=== PATIENT | male | born 1950 | race Caucasian/White ===

== ENCOUNTER 2025-01-04 09:48 | Outpatient (AMB) | payer OTHER, SELFPAY ==
--- NOTE | 2025-01-04 10:16 | A.OFFPC_ITS ---
Vital Signs 01/04/25 10:22 01/04/25 10:48 Height 5 ft 11 in Weight 260 lb 6 oz BMI 36.3 BP 152/80 H 120/62 Blood Pressure Location Lt brachial Lt brachial Position Sitting Sitting Respiration 13 Pulse 93 Pulse Source Pulse Oximeter Temp 97.5 F Temp Source Oral Pulse Oximetry (%) 96 Oxygen Delivery Method Room Air Intake Visit Reasons: est care/ asthma Intake Note: New patient to establish care Burn Nurse Required: No Allergies No Known Allergies Allergy (Verified 01/04/25 10:40) Medication List - Last Reconciled 01/04/25 by Giulia Sharma, DISTRIBUTION MANAGER- albuterol sulfate 90 mcg/actuation inhalation Tobacco use date assessed: 01/04/25 Fall risk assessment: No Falls in past year Last assessed Fall Risk: 01/04/25 Dental Screening Dental Screen Date: 01/04/25 Did you have a dental visit in the last 12 months?: No Did you have a dental problem in the last 6 months where you did not have access to dental care?: No Was dental information given to patient?: No HPI HPI Comments History of Present Illness Details Angelo 74 y/o M with provoked DVT RLE November, Asthma, PVD w/ Ulcer, obesity s/p hernia repair, varicose vein surgery Family hx: Mom leukemia, Dad brain ca Social: , lives in [facility]; owns [employer] in [place]; has 1 son Health Maintenance: Colon: has never had one; declined. Vaccines: declined tdap; Declined Flu. AAA screen: n/a EKG: Specialists: Wound Care in the past New referral to Pulm Vascular Optho wears glasses Here today to est care Limited medical records available Asthma: recently got over PNA Sep 2024. Only on ADDISON. Reports cracking ribs. Declined vaccines today. Feels winded at time. [place]O w/o chest pain Not active w/ Pulm at this time. Open to referral. Decreased appetite since being sick. Wt loss assoc. He declines labs and colon PVD w/ ulcer. Reports healed. Cleared by [facility]. HX of DVT in RLE. Was on eliquis. Off now. This occured after long flight to [facility]. Declined all labs. Exam Awake alert NAD RRR LS CTAB, mildly dim throughout RLE: Nonpitting edema, chronic vascular skin changes w/ scarring. No open areas. Decreased PP. hairless LLE: Nonpitting edema, skin intact, + varicose veins, hairless, decreased PP, chronic skin changes but much less so than the RLE. Plan Declined all labs and vaccines Refer to Pulm for mgmt Start symbicort; refill ADDISON Would like to check labs and start meds for PVD but he declines. Will be hard to mitigate risk w/ the above Be that as it may that is how he wishes to proceed RTO 6 months sAWV, sooner PRN Total time spent caring for the patient today was 45 minutes. This includes time spent before the visit reviewing the chart, time spent during the visit, and time spent after the visit on documentation, reviewing laboratory results, diagnostic imaging, medications, performing a medically necessary evaluation, counseling on diagnoses, care coordination, ordering appropriate tests, ordering appropriate medications, review of tests performed by other providers, reporting test results with the patient, communication with other healthcare providers. [facility], [facility] Medical History (Updated 01/04/25 @ 11:00 by JEREMY Riley-MARIZA) Blood clot in vein No pertinent family history Surgical History (Updated 01/04/25 @ 10:57 by JEREMY Riley-MARIZA) Colon cancer screening declined (~12/2024) No pertinent past surgical history Social History (Updated 01/04/25 @ 10:28 by Arminda Doe MA) Household Members: Spouse Both parents involved: No Caregiver staying overnight: No Housing: House Are you a primary patient care associate to a significant other at home: No Do you presently have visiting nurse or other home services: No 75 years or older and lives alone: No Alcohol intake: never Patient Tobacco Use Status: Never used Tobacco e-Cigarette/Vaping Use: Never Used Second Hand Smoke Exposure: No service: No Current occupational status: retired Current occupational exposures/hazards: No Cognitive needs: No Hearing needs: No Vision needs: Yes (wear glasses) Questionnaire PHQ-9 Over the last 2 weeks, how often have you been bothered by any of the following problems? 1. Little interest or pleasure in doing things: not at all 2. Feeling down, depressed, or hopeless: not at all 3. Trouble falling or staying asleep, or sleeping too much: not at all 4. Feeling tired or having little energy: not at all 5. Poor appetite or overeating: several days 6. Feeling bad about yourself - or that you are a failure or have let yourself or your family down: not at all 7. Trouble concentrating on things, such as reading the newspaper or watching television: not at all 8. Moving or speaking so slowly that other people could have noticed. Or the opposite - being so fidgety or restless that you have been moving around a lot more than usual: not at all 9. Thoughts that you would be better off or of hurting yourself in some way: not at all Total score: 1 Depression Screening Interpretation: Negative Depression Screening Done: Yes 18122 - PHQ-9 Billing: Yes Source: Developed by Drs. Tom Shaffer, Joanie Conte, Sabas Estrada and colleagues, with an educational sherrell from [employer]. Thrive Questionnaire Date Thrive assessed: 01/04/25 I am a: Patient What is your living situation today?: I have a steady place to live Within the past 12 months, did the food you bought not last and you didn't have the money to get more?: Never true Within the past 12 months, did you worry whether your food would run out before you got money to buy more?: Never true Do you have trouble paying for medicines?: No Do you have trouble getting transportation to medical appointments?: No Do you have trouble paying your heating and electricity bill?: No Do you have trouble taking care of your child, family member or friend?: No Do you have trouble with day-to-day activities such as bathing, preparing meals, shopping, managing finances, etc.?: No Are you currently unemployed and looking for a job?: No Are you interested in more education?: No Please select the resources that you would like help with: None Currently or been in a relationship where the following occur: No concerns reported THRIVE Score: 0 AUDIT C Alcohol Use Questionnaire (AUDIT-C) 1. How often do you have a drink containing alcohol?: Never 3. How often do you have six or more drinks on one occasion?: Never Total Score: 0 Score Reviewed/Action Taken: Yes MIRIAM-7 AMB Questionnaire MIRIAM-7 Date MIRIAM - 7 assessed: 01/04/25 Feeling nervous, anxious, or on edge: 0 = Not at all Not being able to stop or control worryin = Not at all Worrying too much about different things: 0 = Not at all Trouble relaxin = Not at all Being so restless that it is hard to sit still: 0 = Not at all Becoming easily annoyed or irritable: 0 = Not at all Feeling afraid as if something awful might happen: 0 = Not at all Total MIRIAM-7 score (0-4 normal; 5-9 mild; 10-14 moderate; 15-21 severe): 0 Source: Developed by Drs. Tom Shaffer, Joanie Conte, Sabas Estrada and colleagues, with an educational sherrell from [employer]. MIRIAM-7 Assessment Billing MIRIAM-7 Assessment Tool: MIRIAM-7 Assessment 37043 ACT Questionnaire In the past 4 weeks, how much of the time did your asthma keep you from getting as much done at work, school or at home?: Some of the time During the past 4 weeks, how often have you had shortness of breath?: 3-6 times a week During the past 4 weeks, how often did your asthma symptoms wake you up at night or earlier than usual in the morning?: 2-3 nights a week During the past 4 weeks, how often have you had to use your rescue inhaler or nebulizer medication?: 1-2 times a week How would you rate your asthma control during the past 4 weeks?: Somewhat controlled ACT Interpretation: Positive ACT Branch: Follow up visit scheduled Score: 13 Physical exam (Primary Care) Vital Signs: Last Vital Signs Temp 97.5 F 01/04/25 10:22 Pulse 93 01/04/25 10:22 Resp 13 01/04/25 10:22 BP 152/80 H 01/04/25 10:22 Pulse Ox 96 01/04/25 10:22 Oxygen Delivery Method Room Air 01/04/25 10:22 BMI result Body Mass Index 36.3 BMI Assessment/Plan discussion: High BMI High, discussed plan: lifestyle Tobacco/Smoking Status: Tobacco use Status Tobacco use date assessed 01/04/25 01/04/25 10:26 Patient Tobacco Use Status Never used Tobacco 01/04/25 10:28 e-Cigarette/Vaping Use Never Used 01/04/25 10:28 PHQ-9: PHQ-9 Score PHQ-9: Total score 1 01/04/25 10:29 Depression Screening Interpretation: Negative Thrive Assessment: Date of Thrive Assessment Date Thrive assessed 01/04/25 01/04/25 10:26 Currently or been in a relationship where the following occur: No concerns reported Coding Level of Care Code New Pt Level 4 (04154) Complex EM visit Add On G2211 Diagnoses Encounter to establish care Z76.89 Moderate persistent asthma without complication J45.40 Asthma severity: moderate Asthma persistence: persistent Asthma complication type: uncomplicated History of DVT of lower extremity Z86.718 PVD (peripheral vascular disease) I73.9 Obesity (BMI 30-39.9) E66.9 Influenza vaccination declined Z28.21 Tetanus, diphtheria, and acellular pertussis (Tdap) vaccination declined Z28.21 Additional Codes MIRIAM-7 Assessment Billing - MIRIAM-7 Assessment Tool: MIRIAM-7 Assessment 12965 ([id number]) PHQ-9 - 10605 - PHQ-9 Billing: Yes ([id number]) Asthma Control Questionnaire - ACT Interpretation: Positive ([id number]) Assessment & Plan Assessment & Plan (1) Encounter to establish care: Code(s): Z76.89 - Persons encountering health services in other specified circumstances Category: Medical (2) Asthma: Code(s): J45.909 - Unspecified asthma, uncomplicated Category: Medical Qualifiers: Asthma severity: moderate Asthma persistence: persistent Asthma complication type: uncomplicated Qualified Code(s): J45.40 - Moderate persistent asthma, uncomplicated (3) History of DVT of lower extremity: Comment: provoked, after flight; RLE was on eliquis now off Code(s): Z86.718 - Personal history of other venous thrombosis and embolism Category: Medical (4) PVD (peripheral vascular disease): Comment: DECLINED STATIN, ASA OR LABS HE WAS ACTIVE W [facility] VASCULAR REPORTS PRN FU ONLY Code(s): I73.9 - Peripheral vascular disease, unspecified Category: Medical (5) Obesity (BMI 30-39.9): Code(s): E66.9 - Obesity, unspecified Category: Medical (6) Influenza vaccination declined: Code(s): Z28.21 - Immunization not carried out because of patient refusal Category: Medical (7) Tetanus, diphtheria, and acellular pertussis (Tdap) vaccination declined: Code(s): Z28.21 - Immunization not carried out because of patient refusal Category: Medical Plan . Orders: Referrals Pulmonology Referral J45.909 - Unspecified asthma, uncomplicated Medications: New albuterol sulfate 90 mcg/actuation 2 inhalations inhalation Q6H 6.7 grams 1RF budesonide-formoterol 80-4.5 mcg/actuation (Symbicort) 1 inh inhalation BID 10.2 grams 3RF Patient Instructions: Walk-In Care (Urgent Care): We Make it Easy Walk-in for urgent medical issues such as: ? Seasonal Allergies ? Insect Bites ? Cough ? Diarrhea ? Acute Asthma Attacks ? Back, Knee or Joint Pain ? Ear Infection ? Fever without a Rash ? Headaches ? Nausea ? [place], Rash or Skin Irritation ? Sore Throat ? Sports Physicals ? Vomiting Most insurances are accepted. Patients do not need to be part of the [facility] to seek care at the walk-in clinic. Locations [address] [place] [address] [place] [address] ? [phone] [facility] Walk-In Care in [place] provides services to ages 18 and over. Open Friday-Friday: 8 a.m. to 5 p.m. and Friday: 9 a.m. to 3 p.m.* *Hours may vary due to staffing availability. To confirm Walk-In Care hours in [place], please call [phone]. [address] [place] [address] ? [phone] [facility] Walk-In Care in [place] provides services to ages 12 and over. Open Friday-Friday: 8 a.m. to 5 p.m. Hours may vary due to staffing availability. To confirm Walk-In Care hours in [place], please call [phone]. LABORATORY SERVICES: [facility] ? Primary Location [address] [place] [address] Friday through Friday 6:00 AM ? 5:00 PM Friday 7:00 AM ? 11:00 AM* [phone] The [facility] is centrally located near the front entrance of the [facility] for easy outpatient access. Convenient parking is provided for outpatients. *Hours may vary due to staffing availability. To confirm Laboratory hours for any location, please call [phone]. Offsite Location For your convenience, we offer offsite laboratory draw stations at the following locations: [address] [facility], [place] ? [facility] [address] [facility], [address], [place] Friday through Friday 7:30 AM ? 1:00 PM* [phone] *Hours may vary due to staffing availability. To confirm Laboratory hours for any location, please call [phone]. [place] ? [facility] [facility] [address] [facility] [place] Friday through Friday 6:00 AM ? 3:30 PM* Friday 6:30 AM ? 3 PM* [phone] *Hours may vary due to staffing availability. To confirm Laboratory hours for any location, please call [phone]. [address] [facility] Friday through Friday 7:30 AM ? 4:00 PM* [phone] *Hours may vary due to staffing availability. To confirm Laboratory hours for any location, please call [phone] [place] [address] Friday through 9:00 AM ? 4:00 PM* *Hours may vary due to staffing availability. To confirm Laboratory hours for any location, please call [phone]. Appointments are not necessary. Walk-ins are welcome. Like all the departments throughout the [facility], our Lab undergoes frequent reviews to ensure the quality and accuracy of test results, and our staff takes special pride in its status as a nationally accredited facility. Patient Portal: ONE PATIENT. ONE RECORD. BETTER CARE. [facility] has a fully integrated, cutting- edge mobile electronic health information system that has revolutionized the way we care for our patients and manage our organization. This system improves communication and coordination enabling us to provide safe, higher-quality care, and an overall positive experience for staff and patients. Our first priority, as always, is to deliver the highest quality care possible. The system is running in the background supporting that priority. This portal is for all [facility] services and practices. If you are experiencing any technical difficulties with enrolling or logging into the Patient Portal please complete the [facility] Patient Portal Technical Support Form. [facility] now offers a new secure on-line interactive tool for patients to review their health information ? ?Patient Portal. This interactive web portal will enable patients and their families to take an active role in their care by providing easy, secure access to their health information via the internet. The Patient Portal provides patients with instant access to their health information, including laboratory results, medications, allergies, demographic information, visit history, and more. In addition to managing their own care, parents and health care proxies with authorized consent will appreciate the ability to access the records of those individuals for whom they provide care. Please note: if you wish to gain access (Proxy) to another patient?s portal, you will be required to come to the Medical Records Department in person at [facility]. Both the patient giving proxy access and the proxy will need to provide photo identification and complete the appropriate authorization. The Patient Portal also allows track their appointments online. The [facility] Patient Portal also saves patients time by allowing them to submit updates to their demographic and contact information prior to their visits. Portal email notifications will also alert patients to any new activity on their portal, such as test results and new appointments. In order to initially enroll in the [facility] Patient Portal, you will need to enter some required information including the following: * your [facility] Medical Record number * your personal home email address * name * date of Please note: In order to enroll in the [facility] Patient Portal, we need to have your email address on file in your electronic medical record. ?The email address needs to be specific for one person (yourself) in order for your Portal enrollment to be successful. ?You can update your email address in person with our Registration staff when you are registering for a hospital visit. ?Otherwise, you will need to come to the Health Information Management (Medical Records) Department at [facility]. ?We are open from Friday ? Friday from 7:30 a.m. ? 4:30 p.m. ?You will be required to present a photo id. Once you have successfully enrolled in the Patient Portal, you will receive a one-time user id and password for the Portal, sent to your email address. ?This will allow you to log into the Patient Portal within 99 hrs and reset your own logon id and password, and define personal security questions. ?Once your permanent login and password have been set, you can log into the [facility] Patient Portal at any time via the blue button above or from the Portal Logon button on any page of the [facility] website. [facility] encourage all of our patients to enroll in Patient Portal as it presents a valuable opportunity for patients and their families to actively participate in their care and stay healthy Welcome to [facility]. ?We look forward to working with you.
[2025-01-04 10:22] VITALS: BP 152/80; PULSE 93; RESP 13; TEMP 36.4; O2SAT 96; BMI 36.3
[2025-01-04 10:48] VITALS: BP 120/62
== END 2025-01-04 11:03 | disposition home or self-care (01) ==
LOC: HO.HMCFM 09:48
PROVIDERS: PCP Nurse Practitioner Family; Visit Provider Nurse Practitioner Family
DX: J45.40 Moderate persistent asthma, uncomplicated (principal); I73.9 Peripheral vascular disease, unspecified; E66.9 Obesity, unspecified; Z68.36 Body mass index [BMI] 36.0-36.9, adult; Z86.718 Personal history of other venous thrombosis and embolism; Z76.89 Persons encountering health services in other specified circumstances; Z28.21 Immunization not carried out because of patient refusal

== ENCOUNTER → 2025-01-04 09:48 | Outpatient (BNVA) | payer OTHER, SELFPAY | PROVIDERS: PCP Nurse Practitioner Family; Visit Provider Nurse Practitioner Family | DX: Z76.89 Persons encountering health services in other specified circumstances (principal); J45.40 Moderate persistent asthma, uncomplicated; I73.9 Peripheral vascular disease, unspecified; E66.9 Obesity, unspecified; Z68.36 Body mass index [BMI] 36.0-36.9, adult; Z86.718 Personal history of other venous thrombosis and embolism; Z28.21 Immunization not carried out because of patient refusal | CPT/HCPCS: 96127; 96160 ==

== ENCOUNTER 2025-02-22 13:27 | Outpatient (AMB) | payer OTHER, SELFPAY ==
--- NOTE | 2025-02-22 13:28 | A.OFFVIS_ITS ---
Vital Signs 02/22/25 13:29 Height 5 ft 11 in Weight 261 lb 8 oz BMI 36.5 BP 120/68 Blood Pressure Location Lt brachial Position Sitting Pulse 86 Pulse Source Pulse Oximeter Pulse Oximetry (%) 97 Oxygen Delivery Method Room Air Intake Visit Reasons: Asthma Allergies No Known Allergies Allergy (Verified 02/22/25 13:31) HPI HPI Asthma: Details: Kai is a pleasant 74-year-old male, never smoker with underlying asthma, peripheral vascular disease and history of DVT right lower extremity previously on Eliquis. He was referred by PCP for pulmonary evaluation. He reports asthma dx as an adult, never requiring intubation. He reported worsening asthma symptoms after being diagnosed and treated with pneumonia in September through [facility]. He was recently started on Symbicort however uses infrequently due to finanacial constraints. He currently feels respiratory symptoms are controlled however uses albuterol MDI frequently. He reports mild seasonal allergies and has multiple chickens and to take these at home, not interested in allergy testing at this time. He endorses second hand smoke exposure. he denies any occupational exposures. He reported hospitalization related to RSV 2-3 years ago and had with his son and he was supposed to have a sleep study however never performed. He also endorses non restorative sleep and daytime fatigue. He is interested and home sleep study. [facility] Medical History (Updated 02/22/25 @ 14:08 by Francine Zavala NP) No pertinent family history Blood clot in vein Surgical History (Updated 01/04/25 @ 10:57 by Giulia Sharma, [facility]) Colon cancer screening declined (~12/2024) No pertinent past surgical history Social History Household Members: Spouse Both parents involved: No Caregiver staying overnight: No Housing: House Are you a primary care aide to a significant other at home: No Do you presently have visiting nurse or other home services: No 75 years or older and lives alone: No Alcohol intake: never Patient Tobacco Use Status: Never used Tobacco e-Cigarette/Vaping Use: Never Used Second Hand Smoke Exposure: No service: No Current occupational status: retired Current occupational exposures/hazards: No Cognitive needs: No Hearing needs: No Vision needs: Yes (wear glasses) Review of Systems Const Denies chills, Denies excessive sweating, Denies fever(s), Denies headache(s) and Denies night sweats Eyes Denies dry eyes, Denies irritation and Denies itchy eyes ENT Reports Normal hearing present, Denies headache(s), Denies nasal congestion, Denies nasal discharge, Denies post nasal drip and Denies sore throat Card Denies chest pain, Denies chest pain at rest, Denies chest pain with activity, Denies claudication, Denies orthopnea and Denies paroxysmal nocturnal dyspnea Resp Denies chest congestion, Denies cough, Denies excessive phlegm production, Denies pain on inspiration, Denies pain with cough, Denies stridor and Denies wheezing Musc Denies myalgias Neuro Reports Normal hearing present and Denies headache(s) Endo Denies excessive sweating Jatinder/Lymph Denies lymphadenopathy Aller/Immun Denies itchy eyes, Denies seasonal rhinorrhea and Denies wheezing Physical Exam Vital Signs: Last Vital Signs Pulse 86 02/22/25 13:29 BP 120/68 02/22/25 13:29 Pulse Ox 97 02/22/25 13:29 Oxygen Delivery Method Room Air 02/22/25 13:29 BMI result Body Mass Index 36.5 Const General: cooperative, healthy appearing, comfortable, no acute distress, well developed and alert Nutritional Appearance: obese Orientation/consciousness: patient oriented x3 Limitations: no limitations HEENT Head: Yes normal to inspection, Yes normocephalic and Yes atraumatic Ears: hearing grossly normal bilaterally and external ears normal Eyes General: appearance normal, both eyes and all related structures Eyelids: Yes eyelids normal Sclerae: sclerae normal EOM: EOMs intact bilaterally Neck Neck: Yes normal visual inspection and Yes no lymphadenopathy Lymphatic: no lymphadenopathy noted Chest Chest palpation & inspection: normal inspection of the chest Resp Effort & Inspection: normal respiratory effort, able to speak in complete sentences, no audible wheezes, no cough, no stridor, not tachypneic, no tripod positioning and no use of accessory muscles Auscultation: clear to auscultation bilaterally Cardio Jugular venous distension: no JVD Rate: regular rate Rhythm: regular rhythm Skin Other: warm, dry General skin exam: no rashes or lesions noted Neuro General: patient oriented x3 Cranial nerves: Yes Normal hearing present Cognition (Neuro): normal cognition Gait exam (Neuro): Normal gait present Psych Appearance: grossly normal and well kempt Speech and movement: Normal speech and movement present and Clear speech present Affect: normal affect Attitude: cooperative Thought process: Normal thought process present Thought content: Normal thought content present Insight: Good insight present (Psych) Judgement: Good judgement present (Psych) Assessment & Plan Assessment & Plan (1) Asthma: Code(s): J45.909 - Unspecified asthma, uncomplicated Category: Medical Qualifiers: Asthma complication type: uncomplicated Asthma persistence: persistent Asthma severity: moderate Qualified Code(s): J45.40 - Moderate persistent asthma, uncomplicated (2) Non-restorative sleep: Code(s): G47.8 - Other sleep disorders Category: Medical (3) Witnessed episode of apnea: Code(s): R06.81 - Apnea, not elsewhere classified Category: Medical Plan Kai presents for known history of asthma and question of obstructive sleep apnea. Will attempt to send the AirDuo in place of Symbicort. Discussed importance of good oral hygiene to prevent thrush. Will send for PFT to assess severity of obstructive defect. Patient reports symptoms suggestive of obstructive sleep apnea, will send for home sleep study to evaluate. Patient with mild seasonal allergies and has 50 chickens and 2 turkeys at home, discussed sending for RAST to assess for triggers however he declines at this time. All questions were answered and patient is agreement of plan. Will follow up to review results or sooner if needed. Orders: Orders PFT pulmonary function test Today J45.40 - Moderate persistent asthma, uncomplicated RT home sleep study Today G47.8 - Other sleep disorders, R06.81 - Apnea, not elsewhere classified Medications: New fluticasone propion-salmeterol 113-14 mcg/actuation (AirDuo RespiClick) 1 inh inhalation BID 1 ea 6RF Coding Level of Care Code New Pt Level 4 (01676) Diagnoses Moderate persistent asthma without complication J45.40 Asthma complication type: uncomplicated Asthma persistence: persistent Asthma severity: moderate Non-restorative sleep G47.8 Witnessed episode of apnea R06.81
[2025-02-22 13:29] VITALS: BP 120/68; PULSE 86; O2SAT 97; BMI 36.5
== END 2025-02-22 14:08 | disposition home or self-care (01) ==
LOC: HO.HPSW 13:27
PROVIDERS: PCP Nurse Practitioner Family; Referring Provider Nurse Practitioner Family; Visit Provider Nurse Practitioner Family
DX: J45.40 Moderate persistent asthma, uncomplicated (principal); G47.8 Other sleep disorders; R06.81 Apnea, not elsewhere classified
CPT/HCPCS: 99204

== ENCOUNTER → 2025-02-22 13:27 | Outpatient (BNVA) | payer OTHER, SELFPAY | PROVIDERS: PCP Nurse Practitioner Family; Referring Provider Nurse Practitioner Family; Visit Provider Nurse Practitioner Family ==

== ENCOUNTER 2025-05-31 10:23 | Outpatient (REF) | payer MEDICARE, SELFPAY ==
--- OUTSIDE RECORDS SUMMARY | 2024-09-30 09:15 | XMS_ITS | Encounter Summary ---
Author Organization [facility] Address [address] [facility] [address] [place] [phone] Phone Care Team Providers Care On Awake Counselor Name Role Phone Ernesto Stewart Primary Care Provider [phone] Encounter Details Date Type Department Care Team (Late st Contact Info) Description 09/30/2024 8:15 AM EST Hospital Encounter [facility] [address] [place] [id number] Divya Pugh, POULTRY HATCHERY MAN [address] [place] [address] [email or web address] Social History Tobacco Use Types Packs/Day Years [...] likely atelectasis, aspiration orearly pneumonia. Divya Pugh POULTRY HATCHERY MAN IMG XR CHEST Final R esult documented in this encounter Visit Diagnoses Not on filedocumented in this encounter Care Teams On Awake Counselor Relationship Specialty Start Date End Date Ernesto Stewart DO [email or web address] PCP - General Internal Medicine 12/14/23 documented as of this encounter Additional Source Comments The information contained in this document represents components of the legal health record. It is not the complete legal health record.[facility]
--- NOTE | 2025-05-31 10:27 | PFT_ITS ---
Flows: FEV1: 64 % of predicted at 2.02 L FVC: 76 % of predicted at 3.23 L FEV1/FVC: 63 % Bronchodilator response: Present Volumes: Total lung capacity: 73 % of predicted at 5.39 L Residual volume: 76 % of predicted at 2.06 L Slow vital capacity: 74 % of predicted at 3.33 L Expiratory reserve volume: 59 % of predicted at 0.77 L Diffusion capacity: Mildly decreased, corrects to normal after adjustment for alveolar ventilation. Impression: Combined moderate obstructive and restrictive ventilatory defects with positive bronchodilator response. Decreased expiratory reserve volume suggests extrathoracic restriction likely secondary to abdominal obesity. Decreased diffusion capacity suggests emphysema. MTDD
[2025-05-31 11:07] VITALS: PULSE 58; O2SAT 95
--- OUTSIDE RECORDS SUMMARY | 2025-05-31 11:57 | XMS_ITS | Encounter Summary ---
Author Organization [facility] Address [address] [facility] [address] [place] [phone] Phone Care Team Providers Care Manager Test Name Role Phone Pcp, Unknown Primary Care Provider Nevin Sotelo MD Primary Care Provid er Ernesto Stewart DO Primary Care Provider [phone] Encounter Details Date Type Department Care Team (Late st Contact Info) Description 08/25/2021 Procedure Pass [facility], Ct Scan - [address] [address] Social History Tobacco Use Types Packs/Day Years Used Date Smoking Tobacco: Never Smokeless Tobacco: Never Alcohol Use Standard Drinks/Week Comments Yes 0 (1 standard drink = 0.6 oz pur e alcohol) rare Sex and Gender Information Value Date Recorded Sex Assigned at Male 02/25/2024 6:13 PM EDT Legal Sex Male 8:05 AM EST Gender Identity Male 02/25/2024 6:13 PM EDT Sexual Orientation Don't know 02/25/2024 6: 13 PM EDT documented as of this encounter Plan of Treatment Not on file documented as of this encounter Visit Diagnoses Not on filedocumented in this encounter Additional Health Concerns Infection Onset Date Last Indicated Resolved Time CoV-Risk Comment:2 neg covid 08/24/2021 08/25/2021 08/29/2021 8:[address] RSV 08/25/2021 08/25/2021 09/01/2021 1:22 AM EST documented as of this encounter Care Teams Manager Test Relationship Specialty Start Date End Date Pcp, Unknown PCP - General 08/24/21 08/28/21 Nevin Keita MD [address] [place] [id number] [email or web address] PCP - General Family Medicine 08/29/21 Ernesto Stewart DO [address] [place] [id number] [email or web address] PCP - General Internal Medicine 12/14/23 documented as of this encounter Additional Source Comments The information contained in this document represents components of the legal health record. It is not the complete legal health record.[facility]
--- OUTSIDE RECORDS SUMMARY | 2025-05-31 11:57 | XMS_ITS | Encounter Summary ---
Author Organization [facility] Address [address] [facility] [address] [place] [address] Phone Care Team Providers Care Lead Business Systems Analyst Name Role Phone Nevin Keita MD Primary Care Provid er Ernesto Stewart DO Primary Care Provider [phone] Encounter Details Date Type Department Care Team (Late st Contact Info) Description 01/08/2022 Transcribe Orders [facility] PFT Lab [address] [place] [address] Nevin Keita MD [address] [id number] [email or web address] Social History Tobacco Use Types Packs/Day Years [...] on filedocumented in this encounter Care Teams Lead Business Systems Analyst Relationship Specialty Start Date End Date Nevin Keita MD [address] [place] [address] [email or web address] PCP - General Family Medicine 08/29/21 Ernesto Stewart DO [address] [place] [id number] [email or web address] PCP - General Internal Medicine 12/14/23 documented as of this encounter Additional Source Comments The information contained in this document represents components of the legal health record. It is not the complete legal health record.[facility]
--- OUTSIDE RECORDS SUMMARY | 2025-05-31 11:57 | XMS_ITS ---
Author Name [facility] Organization Unknown Care Team Organization Name Specialty Phone Email Start Date End Da ashley [facility] 08/06/2022 05/17/2024
--- OUTSIDE RECORDS SUMMARY | 2025-05-31 11:57 | XMS_ITS | Clinical Summary ---
Author Organization [facility] Address [address] [facility] [address] [place] [phone] Phone Care Team Providers Care Sales Clerk Food Name Role Phone Ernesto Stewart DO Primary Care Provider Allergies No known active allergies Medications acetaminophen (TYLENOL) 325 mg tablet Take 2 tablets (650 mg total) by mouth every 6 (six) hours as needed for mild pain or fever. 0 1 Active sodium chloride (HYPERSAL) 7 % Nebu Take 4 mL by nebulization 2 (two) times a day. 80 mL 1 Active fluticasone propionate (FLOVENT HFA) 44 mcg/actuation inhalerIndicatio ns:Moderate persistent asthma without complication Inhale 1 puff into the lungs 2 (two) times a day. 10.6 g 2 1 Active apixaban (ELIQUIS) 5 mg (74 tabs) tablets in DVT/PE starter pack Take by mouth as directed. Take 10mg by mouth twice daily for 7 days followed by 5mg twice daily. 74 tablet 4 Active Additional Information Patient not taking.Reported on 09/30/2024 ammonium lactate (AMLACTIN) 12 % cream See Instructions, Topically 2 times a day, # 140 Gm, 0 Refills, Maintenance, 07/27/24 11:29:00 AM EDT, [id number], Partial fill upon patient request if the prescription is for a schedule II opioid drug., Topically 2 times a day, 179, cm, 07/27/24 10:48:00 EDT, Height, 126.6, kg, 07/06/24 6:54:00 EDT, Dry Weight 4 Active albuterol 90 mcg/actuation inhaler Inhale 2 puffs into the lungs every 6 (six) hours as needed for wheezing. 18 g 5 Active albuterol (ACCUNEB) 0.63 mg/3 mL nebulizer solution Take 3 mL (0.63 mg total) by nebulization every 6 (six) hours as needed for wheezing. 1080 mL 5 Active Active Problems Problem Noted Date Diagnosed Date Aortic root dilation 10/09/2021 Overview (10/14/2021): 07/2021: Transthoracic echocardiogram: mild concentric LVH. His systolic function was low normal 55 to 60%. There were no wall motion abnormalities normal diastolic function. No hemodynamically significant valvular disease. His aortic root and ascending aorta are mildly dilated at 3.8 and 3.9 cm respectively. Encounter for support and co ordination of transition of care 09/16/2021 Assessment & Plan (09/16/2021 4:25 PM EST): Hospital discharge summary reviewed. Medications reconciled. Follow up orders as indicated below. Class 2 severe obesity with body mass index (BMI) of 35 to 39.9 with serious comorbidity 09/11/2021 Assessment & Plan (10/14/2021 6:13 PM EST): Counseling on setting a small weight loss goal, starting to establish regular exercise routine Moderate persistent asthma without complication 09/11/2021 Assessment & Plan (10/14/2021 6:07 PM EST): Continue Flovent, ADDISON PRN Assessment & Plan (09/16/2021 4:22 PM EST): Add Flovent Continue ADDISON PRN Nocturnal hypoxia 09/11/2021 Assessment & Plan (10/14/2021 6:07 PM EST): Needs appt with sleep medicine- needs sleep study Assessment & Plan (09/16/2021 4:20 PM EST): Likely DILMA not yet formally diagnosed. Continue supplemental nighttime oxygen as directed until definitive sleep study recommendations are provided Venous stasis dermatitis of both lower extremiti es 09/11/2021 Assessment & Plan (09/16/2021 4:22 PM EST): Discussed compression stockings Acute respiratory failure with hypoxia Assessment & Plan (08/28/2021 1:06 PM EST): -Secondary to RSV and acute asthma exacerbation -CT angio negative for PE or pneumonia -Covid swab negative x2 -Legionella and strep pneumo serology negative _echo unremarkable. Patient states that he is feeling dramatically better. Ready to transition to oral steroids. Overnight last night he had several hypoxic readings mostly about 87 but he did have 1-84. Discussed with the patient and his , no signs or symptoms of sleep apnea at baseline. Probably just a result of this current infection and inflammatory state. Discussed with RT, will do an overnight oximetry tonight to see if he needs home nocturnal O2 prior to discharge. Anticipate home tomorrow. Immunizations Immunization Administration Dates Next Due Influenza High-Dose Quadrivalent Preservative Fr ee IM 08/29/2021 Pneumococcal polysaccharide PPSV23 10/09/2021 Family History Medical History Relation Comments Brain cancer Father Leukemia Mother Relation Status Comments Father Mother Social History Tobacco Use Types Packs/Day Years [...] Don't know 02/25/2024 6: 13 PM EDT Last Filed Vital Signs Vital Sign Reading Time Taken Comments Blood Pressure 175/107 09/30/2024 8:08 AM EST Pulse 95 09/30/2024 8:08 AM EST Temperature 36.8 C (98.2 F) 09/30/2024 8:08 AM EST Respiratory Rate 24 09/30/2024 8:08 AM EST Oxygen Saturation 94% 09/30/2024 8:08 AM EST Inhaled Oxygen Concentration 24% 08/28/2021 3 :20 AM EST Weight 117.9 kg (260 lb) 01/16/2024 11:12 AM EDT Height 180.3 cm (5' 11 ) 01/16/2024 11:12 AM EDT Body Mass Index 36.26 01/16/2024 11:12 AM EDT Plan of Treatment Health Maintenance Due Date Last Done Comments Adult Td,Tdap Booster 1951 LIPID PANEL 1951 DEPRESSION SCREENING 1963 HEPATITIS C SCREENING 1969 COLOGUARD 1996 COLONOSCOPY 1996 COLORECTAL CANCER SCREENING 1996 FIT TEST 1996 FOBT 1996 SIGMOIDOSCOPY 1996 VIRTUAL COLONOSCOPY 1996 ZOSTER VACCINES (1 of 2) 2001 RSV VACCINE (1 - Risk 60-74 years 1-dose series) 2011 PNEUMOCOCCAL VACCINES (50+ years) (2 of 2 - PCV) 10/09/2022 10/09/2021 COVID-19 VACCINE (3 - season) 2024 01/10/2021, 12/16/2020 INFLUENZA VACCINE (#1) 2025 08/29/2021 CREATININE LEVEL 09/30/2025 09/30/2024, , 08/26/2021, Additional history exists SMOKING STATUS SCREENING (Once After 26 Yrs) Completed 01/16/2024 HEPATITIS A VACCINES Aged Out No long er eligible based on patient's age to complete this topic HIB VACCINES Aged Out No longer eligi ble based on patient's age to complete this topic MENINGOCOCCAL VACCINES (ACWY) Aged Out No longer eligible based on patient's age to complete this topic MENINGOCOCCAL VACCINES (B) Aged Out N o longer eligible based on patient's age to complete this topic Medical Devices Not on file Procedures Procedure Name Priority Date/Time Associated Diagnosis Comments COMPREHENSIVE METABOLIC PANEL Routine 09/30/2024 8:26 AM EST Acute cough from Last 3 Months or Most Recently Relevant to Health Maintenance Results * (ABNORMAL) Comprehensive metabolic panel (09/30/2024 8:26 AM EST) SODIUM 135 133 - 146 mmol/L [facility] POTASSIUM 4.5 3.3 - 5.1 mmol/L [facility] CHLORIDE 99 96 - 108 mmol/L [facility] CO2 27 21 - 35 mmol/L [facility] BUN 15 6 - 19 mg/dL [facility] CREATININE 0.90 0.5 - 1.5 mg/dL [facility] GLUCOSE 151(H) 70 - 99 mg/dL [facility] ALBUMIN 4.0 3.9 - 4.8 g/dL [facility] TOTAL PROTEIN 7.3 6.5 - 8.0 g/dL [facility] CALCIUM 9.3 8.4 - 10.3 mg/dL [facility] ALKALINE PHOSPHATASE 88 39 - 117 U/L [facility] TOTAL BILIRUBIN 0.9 0.0 - 1.2 mg/dL [facility] AST 28 0 - 37 U/L [facility] ALT 24 0 - 40 U/L [facility] GLOBULIN 3.3 1 - 4.8 g/dL [facility] EGFR 90 >59 mL/min/1.7 3m2 [facility] Comment:Estimated glomerular filtration rate calculated using the CKD-EPI refit equation. ANION GAP 14 10 - 20 mmol/L [facility] Blood 09/30/2024 8:26 AM EST 09/30/2024 8:30 AM EST us Divya Pugh [facility] DISPATCHER LAB BLOOD ORDERABLES Fi nal Result [facility] [address] [place] [address] from Last 3 Months or Most Recently Relevant to Health Maintenance Insurance MEDICARE HMO REPLACEMENT MEDICARE HMO REPLACEMENT MEDICARE HMO REPLACEMENT MEDICARE HMO REPLACEMENT MEDICARE HMO REPLACEMENT MEDICARE HMO REPLACEMENT MEDICARE HMO REPLACEMENT MEDICARE HMO REPLACEMENT MEDICARE HMO REPLACEMENT Advance Directives For more information, please contact: [phone] (9AM - 5PM [place], Friday-Friday) * Full Code (Latest Code Status on File) Date Activated Date Inactivated Comments 08/24/2021 10:27 PM Question Answer Comments Code Status Confirmed With: Patient Care Teams Sales Clerk Food Relationship Specialty Start Date End Date Ernesto Stewart DO PCP - General Internal Medicine 12/14/23 Additional Source Comments The information contained in this document represents components of the legal health record. It is not the complete legal health record.[facility]
--- OUTSIDE RECORDS SUMMARY | 2025-05-31 11:57 | XMS_ITS | Encounter Summary ---
Author Organization [facility] Address [address] [facility] [address] [place] [phone] Phone Care Team Providers Care Library Circulation Department Chief Name Role Phone Pcp, Unknown Primary Care Provider Nevin Sotelo MD Primary Care Provid er Ernesto Stewart DO Primary Care Provider [phone] Encounter Details Date Type Department Care Team (Late st Contact Info) Description 08/24/2021 Procedure Pass [facility] Echo Lab [address] [place] [address] Social History Tobacco Use Types Packs/Day Years [...] PM EDT documented as of this encounter Functional Status * Calculated C-SSRS Risk Score (Lifetime/Recent) Answer Date of Assessment Author No Risk Indicated 08/24/2021 5:10 PM Linda Trivedi RN * [place] Suicide Severity Rating Scale (Screener/Recent Self-Report) Question Answer Date of Assessment Author 1. Wish to be (Past 1 Month) No 021 5:10 PM Linda Trivedi RN 2. Non-Specific Active Suici cedric Thoughts (Past 1 Month) No 08/24/2021 5:10 PM EST Yenifer Ballard RN 6. Suicidal Behavior (Lifetime) No 5:10 PM EST Linda Ballard RN documented as of this encounter Plan of Treatment Not on file documented as of this encounter Visit Diagnoses Not on filedocumented in this encounter Additional Health Concerns Infection Onset Date Last Indicated Resolved Time CoV-Risk Comment:2 neg covid 08/24/2021 08/25/2021 08/29/2021 8:[address] RSV 08/25/2021 08/25/2021 09/01/2021 1:22 AM EST documented as of this encounter Care Teams Library Circulation Department Chief Relationship Specialty Start Date End Date Pcp, Unknown PCP - General 08/24/21 08/28/21 Nevin Keita MD [address] [address] [email or web address] PCP - General Family Medicine 08/29/21 Ernesto Stewart DO [address] [address] [email or web address] PCP - General Internal Medicine 12/14/23 documented as of this encounter Additional Source Comments The information contained in this document represents components of the legal health record. It is not the complete legal health record.[facility]
--- OUTSIDE RECORDS SUMMARY | 2025-05-31 11:57 | XMS_ITS | Encounter Summary ---
Author Organization [facility] Address [address] [facility] [address] [place] [address] Phone Care Team Providers Care Enterprise Infrastructure Architect Name Role Phone Nevin Keita MD Primary Care Provid er Ernesto Stewart DO Primary Care Provider [phone] Encounter Details Date Type Department Care Team (Late st Contact Info) Description 01/22/2022 Procedure Pass Echo Lab [facility] [address] Social History Tobacco Use Types Packs/Day Years [...] on filedocumented in this encounter Care Teams Enterprise Infrastructure Architect Relationship Specialty Start Date End Date Nevin Keita MD [address] [facility] [address] [place] [address] [email or web address] PCP - General Family Medicine 08/29/21 Ernesto Stewart DO [address] [place] [phone] [email or web address] PCP - General Internal Medicine 12/14/23 documented as of this encounter Additional Source Comments The information contained in this document represents components of the legal health record. It is not the complete legal health record.[facility]
--- OUTSIDE RECORDS SUMMARY | 2025-05-31 11:57 | XMS_ITS | Encounter Summary ---
Author Organization [facility] Address [address] [facility] [address] [place] [phone] Phone Care Team Providers Care Copy Coordinator Name Role Phone HildaErnesto calderon Primary Care Provider [phone] Reason for Referral * Outpatient Procedure - Closed Specialty Diagnoses / Procedures Referred By Nick t Referred To Contact Radiology Diagnoses Edema, unspecified type Procedures US Lower Extremity Veins Duplex (Right) Laury Patten NP [address] [place] [phone] Phone: tel: fax: mailto:[email or web address] Referral ID Status Reason Start Date Expiration Date Visits Re quested Visits Authorized [id number] Closed 02/17/2024 02/16/2025 1 1 Encounter Details Date Type Department Care Team (Latest Contact Info) Description 02/17/2024 Transcribe Orders Virtual Department [address] [place] [address] Laury Patten NP [address] [place] [phone] [email or web address] Edema, unspecified type (Primary Dx) Social History Tobacco Use Types Packs/Day Years [...] with a working camera? Not on file Sex and Gender Information Value Date Recorded Sex Assigned at Male 02/25/2024 6:13 PM EDT Legal Sex Male 8:05 AM EST Gender Identity Male 02/25/2024 6:13 PM EDT Sexual Orientation Don't know 02/25/2024 6: 13 PM EDT documented as of this encounter Plan of Treatment Not on file documented as of this encounter Results * US Lower Extremity Veins Duplex (Right) (02/20/2024 8:17 AM EDT) Anatomical Region Laterality Modality Hip Right, Thigh Right, Knee Right, Leg Right, Ankle Right, Foot Right Ultrasound 02/20/2024 8:38 AM EDT Impressions 02/20/2024 8:58 AM EDT * Long segment of occlusive thrombus within the greater saphenous vein. * No evidence of deep or superficial venous thrombosis in the visualized veins of the right lower extremity. * 4.1 cm x 2.3 cm x 1.3 cm Huff cyst. Narrative 02/20/2024 8:58 AM EDT US LOWER EXTREMITY VEINS DUPLEX (RIGHT) Referring clinician's provided indication for this examination in Epic: Outside Radiology Order; Edema; leg pain TECHNIQUE: Lower extremity venous ultrasound with color and spectral Doppler. COMPARISON: None. FINDINGS: Exam Quality: Technically adequate exam demonstrates: Right lower extremity Common femoral vein: Normal compressibility and flow characteristics. Femoral vein: Normal compressibility and flow characteristics. Popliteal vein: Normal compressibility and flow characteristics. Posterior tibial veins: Normal compressibility. Peroneal veins: Normal compressibility. Great saphenous vein: There is a long segment of occlusive thrombus within mid and lower aspect of the thigh. The length of the thrombus is over 5 cm. Contralateral common femoral vein: Normal compressibility. 4.1 cm x 2.3 cm x 1.3 cm fluid collection in the popliteal fossa consistent with Huff's cyst. Procedure Note Pedro Villarreal MD - 02/20/2024 US LOWER EXTREMITY VEINS DUPLEX (RIGHT) Referring clinician's provided indication for this examination in [facility]:Outside Radiology Order; Edema; leg pain TECHNIQUE: Lower extremity venous ultrasound with color and spectralDoppler. COMPARISON: None. FINDINGS: Exam Quality: Technically adequate exam demonstrates: Right lower extremity Common femoral vein: Normal compressibility and flow characteristics. Femoral vein: Normal compressibility and flow characteristics. Popliteal vein: Normal compressibility and flow characteristics. Posterior tibial veins: Normal compressibility. Peroneal veins: Normal compressibility. Great saphenous vein: There is a long segment of occlusive thrombus withinmid and lower aspect of the thigh. The length of the thrombus is over 5cm. Contralateral common femoral vein: Normal compressibility. 4.1 cm x 2.3 cm x 1.3 cm fluid collection in the popliteal fossaconsistent with Huff's cyst. IMPRESSION: * Long segment of occlusive thrombus within the greater saphenous vein. * No evidence of deep or superficial venous thrombosis in the visualizedveins of the right lower extremity. * 4.1 cm x 2.3 cm x 1.3 cm Huff cyst. Laury Patten WIRELESS OPERATOR CV US VASCULAR Final Result documented in this encounter Visit Diagnoses Diagnosis Edema, unspecified type- Primary Edema, unspecified type documented in this encounter Care Teams Copy Coordinator Relationship Specialty Start Date End Date Ernesto Stewart DO PCP - General Internal Medicine 12/14/23 documented as of this encounter Additional Source Comments The information contained in this document represents components of the legal health record. It is not the complete legal health record[facility]
== END 2025-05-31 10:24 | disposition home or self-care (01) ==
LOC: HO.RESP 10:23
PROVIDERS: Visit Provider Nurse Practitioner Family
DX: J45.40 Moderate persistent asthma, uncomplicated (principal); G47.33 Obstructive sleep apnea (adult) (pediatric)
CPT/HCPCS: 94010; 94640; 94727; 94729; 95806

== ENCOUNTER → 2025-05-31 10:27 | Outpatient (BNV) | payer MEDICARE, SELFPAY | PROVIDERS: Visit Provider Internal Medicine Pulmonary Disease | DX: J45.40 Moderate persistent asthma, uncomplicated (principal) | CPT/HCPCS: 94060; 94727; 94729 ==

== ENCOUNTER 2025-08-02 09:39 | Outpatient (AMB) | payer MEDICARE, SELFPAY ==
--- OUTSIDE RECORDS SUMMARY | 2024-09-30 08:15 | XMS_ITS | Encounter Summary ---
Author Organization [facility] Address [address] [facility] [address] [place] [address] Phone Care Team Providers Care Talent Scout Name Role Phone Ernesto Stewart Primary Care Provider [phone] Encounter Details Date Type Department Care Team (Late st Contact Info) Description 09/30/2024 8:15 AM EST Hospital Encounter [facility] [address] [place] [address] Divya Pugh, JUNIOR BUSINESS ANALYST [address] [place] [address] [email or web address] Social History Tobacco Use Types Packs/Day Years [...] clinician's provided indication for this examination in [facility]: Cough COMPARISON: CT CHEST PULMONARY ANGIOGRAM (ACUTE) [...] clinician's provided indication for this examination in [facility]:Cough COMPARISON: CT CHEST PULMONARY ANGIOGRAM (ACUTE) FINDINGS: Devices/Tubes/Lines: None. Lungs: Patchy opacities in the left lower lung. No focal consolidation orpulmonary edema. Pleura: No pleural effusion or pneumothorax. Heart/Mediastinum: Similar cardiomegaly. Tortuous thoracic aorta. Bones/Soft Tissues: Multilevel degenerative changes of the spine. IMPRESSION: Patchy opacities in the left lower lung, likely atelectasis, aspiration orearly pneumonia. Divya Pugh JUNIOR BUSINESS ANALYST IMG XR CHEST Final R esult documented in this encounter Visit Diagnoses Not on filedocumented in this encounter Care Teams Talent Scout Relationship Specialty Start Date End Date Ernesto Stewart DO [email or web address] PCP - General Internal Medicine 12/14/23 documented as of this encounter Additional Source Comments The information contained in this document represents components of the legal health record. It is not the complete legal health record.[facility]
--- NOTE | 2025-08-02 09:44 | AM.OFFVISMDC ---
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 The Medicare Annual Wellness Visit (AWV) is a yearly appointment with a health professional to identify health risks and help reduce them and to create or update a personalized prevention plan. During a Medicare AWV, health professionals should also review any current opioid prescriptions, detect any cognitive impairment, and establish or update medical and family history. Angelo 75 y/o M with provoked DVT RLE November 2023, Asthma, PVD w/ Ulcer, obesity , DILMA on CPAP, obesity. R knee OA, swelling BLE s/p hernia repair, varicose vein surgery Family hx: Mom leukemia, Dad brain ca Social: , lives in [place]; owns [employer] in [place]; has 1 son Health Maintenance: See scanned preventative medicine assessment with personalized health plan and screening schedule. Colon: has never had one; declined. Vaccines: declined tdap; Declined Flu. Mayito get pneumococcal @ pharmacy; declined Shingles. AAA screen: n/a EKG: declined [place] [facility] Care: Wound Care in the past [facility]o wears glasses Visual Acuity: wears glasses, exam Fall 2024, glaucoma suspect, needs to return for re-eval in 6 months Hearing Screening: Admits decreased bilat, referred to [facility] [place] for hearing test today ACP: Does not have HCP or ACP. Forms provided today along w/ edu and encouraged to return Dietary/Nutrition/Exercise Edu provided: Y During the course of the visit the patient was educated and counseled about appropriate screening and preventative services. Patient instructions were provided to the patient in written or electronic format. I have reviewed and verified the above information. History of Present Illness The patient is a 75-year-old male presenting for an annual Medicare wellness visit. Dermatitis of BLE: - The patient reports that his foot is red and itchy, but there are no open sores. - The pruritus is typically worse at night or when his feet are sweaty from being on them frequently. - He has tried xahn-zuf-hcakkoj creams without relief. Arthralgia of the right knee: - The patient reports that his right knee pops and bothers him. - He reports that the pain was previously severe, making it difficult to bend his knee to get out of a car. - The knee pain has significantly improved with an zjix-xlt-yvnkdiu supplement, which he believes is for cartilage. - Wonders about handicap placard. Obstructive Sleep Apnea: - The patient uses a CPAP machine for obstructive sleep apnea. - He has noticed a significant improvement, getting a better night's sleep and feeling less tired in the morning since starting treatment. - He expresses dissatisfaction with his current face mask and desires a full face mask but has concerns about the billing process. Hearing Loss: - The patient reports having a hard time hearing, particularly on the phone when taking orders at work, which causes him frustration. - He believes the difficulty is sometimes due to people talking too fast or mumbling. Glaucoma suspect: - A recent eye exam revealed early signs of glaucoma. - His vision is not currently affected, and the condition is being monitored with a plan for potential surgical correction in the summer. Memory Impairment: - The patient self-reports that his memory is not very good and acknowledges difficulty with remembering things. Past Medical History - Provoked deep vein thrombosis of the right lower extremity in November 2023 - Asthma, managed with albuterol, Symbicort, and Airduo - Peripheral vascular disease with a history of ulcer - Obstructive sleep apnea, on CPAP - Obesity with a BMI of 36.3 - Glaucoma suspect - Patient has not had any hospital visits recently. Past Surgical History - History of vein procedure one year ago. Family History - His brother has hearing loss and possibly dementia. Social History - The patient works every day at a [employer] shop. - He denies smoking, drinking alcohol, or using illicit drugs. - He stays active by working and caring for his animals, including turkeys and chickens. - He is . Review of Systems - Eyes: Reports being told he has early signs of glaucoma but denies changes in vision. - Ears: Reports difficulty hearing. - Respiratory: Denies wheezing. - Gastrointestinal: Reports normal bowel function. - Genitourinary: Reports normal urinary function. - Musculoskeletal: Reports right knee popping and pain. - Integumentary: Reports an itchy, red rash on his foot. - Neurological: Reports memory difficulties. - Extremities: Reports leg swelling. Physical Exam General: Well developed, well nourished, in no acute distress. Appears stated age. Head: Normocephalic, atraumatic. Eyes: Pupils are equal, round and reactive to light and accommodation. Conjunctivae are clear. Scleras nonicteric bilat. Ears: TMs clear AU, EACS WNL. Cerumen in R EAC cleareed w/ lavage. Nose: Patent, without discharge. Neck: No carotid bruit bilat. Supple, no adenopathy or thyromegaly. Breast: Edu on SBE Lungs: Clear to auscultation bilaterally. No rales, rhonchi or wheeze noted. Good air flow in all akhtar. Heart: Regular rate and rhythm. No murmurs, click, rubs or gallops are noted. Abdomen: Bowel sounds present in all quadrants. The abdomen is soft, nontender, with no masses or organomegaly noted. No hernias are noted. : Deferred. Reviewed ASHLEY & recommendations RLE: Nonpitting edema, chronic vascular skin changes w/ scarring. No open areas. Decreased PP. hairless LLE: Nonpitting edema, skin intact, + varicose veins, hairless, decreased PP, chronic skin changes but much less so than the RLE. Neurologic: Gait and station normal. Cranial Nerves 2-12 intact. Motor strength grossly symmetrical and intact. No sensory loss. Balance normal. 07/26 on 6 CIT (delayed recall failed) Skin: No rashes, ulcers, or lesions noted. Turgor is good. Skin color is good. Hair and nails are without abnormalities. Eczematous like Erythematous plaques noted to bilat feet and lower ext Psych: Normal eye contact, affect and mood appropriate, and normal interactions. Patient is alert and appropriate to context. Results - Laboratory tests: A1c is 5.5%. Medical Decision Making The patient is a 75-year-old male who presented for an annual Medicare wellness visit. His primary complaints included an itchy, red rash on his feet/legs and right knee pain. The foot rash is likely a form of dermatitis, possibly aggravated by his lower extremity edema and frequent standing. A prescription for topical triamcinolone was provided. To address the mild lower extremity edema, I have prescribed furosemide along with potassium to prevent hypokalemia. The patient reports subjective hearing loss, and examination revealed cerumen impaction in the right ear, which may be a contributing factor. A right ear lavage will be performed today, and a referral for a formal hearing test has been placed. Cognitive screening revealed difficulty with delayed recall, which, along with the patient's self-reported memory issues, is concerning for mild cognitive impairment. His arthralgia appears to be well-managed symptomatically with an mtqh-foe-efcepsg supplement, and we will assist with a handicap placard application due to his fall risk and difficulty with ambulation over long distances. We will follow up in three months to reassess his edema and overall status. Plan Declined all labs and vaccines Would like to check labs and start meds for PVD but he declines. Will be hard to mitigate risk w/ the above Be that as it may that is how he wishes to proceed 1. Dermatitis of lower ext: - Prescribed topical triamcinolone cream to be applied to affected areas twice a day as needed. 2. Edema Of Lower Extremities - Prescribed furosemide and potassium to be taken together in the morning to manage swelling. - A follow-up visit is scheduled in three months to monitor the effectiveness of the treatment. 3. Hearing Loss And Cerumen Impaction - An in-office right ear lavage will be performed today to remove cerumen impaction. - A referral will be made for a formal hearing test. 4. Arthralgia Of The Right Knee - The patient will continue his current lasr-mmq-qfggesu supplement for symptom management. - Instructed the patient to obtain a handicap placard application from the [facility] to be completed at the next visit due to difficulty walking and fall risk. Patient Instructions - We will perform a flush of your right ear today to remove wax. - I have sent three new medications to your pharmacy. - One medication is a cream called triamcinolone. Apply it only to the itchy patches on your feet as needed. - The other two medications are a water pill (furosemide) and a potassium pill. Take these two pills together in the morning. - You can take these new medications with your daily vitamins and knee supplement. - Please have your son print the handicap placard form from the [facility] website and bring it with you to your next visit. - We will schedule you for a follow-up appointment in about three months. Consent The patient provided verbal consent for the physical examination. He verbally agreed to a right ear lavage after it was explained that it was necessary to ensure the hearing test could be performed accurately. The patient agreed to a referral for a hearing test to evaluate his hearing difficulties. He also consented to starting treatment with a diuretic and potassium for his leg swelling. Patient was informed and verbally consented to the use of an ambient scribe for clinic note documentation during this visit. An additional 30 minutes was spent addressing the problem(s) noted at todays visit. This includes time spent before the visit reviewing the chart, time spent during the visit, and time spent after the visit on documentation reviewing laboratory results, diagnostic imaging, medications, performing a medically necessary evaluation, counseling on diagnoses, care coordination, ordering appropriate tests, ordering appropriate medications, review of tests performed by other providers, reporting test results with the patient, communication with other healthcare providers. [facility] Medical History (Updated 08/02/25 @ 11:12 by JEREMY Riley-MARIZA) Blood clot in vein No pertinent family history Non-restorative sleep Surgical History (Updated 08/02/25 @ 11:11 by GIL RileyP-BC) Colon cancer screening declined (~12/2024) No pertinent past surgical history Social History Household Members: Spouse Both parents involved: No Caregiver staying overnight: No Housing: House Are you a primary career advisor to a significant other at home: No Do you presently have visiting nurse or other home services: No 75 years or older and lives alone: No Alcohol intake: never Patient Tobacco Use Status: Never used Tobacco e-Cigarette/Vaping Use: Never Used Second Hand Smoke Exposure: No service: No Current occupational status: retired Current occupational exposures/hazards: No Cognitive needs: No Hearing needs: No Vision needs: Yes (wear glasses) Questionnaire Medicare Wellness Checkup What [age]?: [age] What gender do you identify with?: male During the past 4 weeks, how much have you been bothered by emotional problems such as feeling anxious, depressed, irritable, sad or downhearted, and blue?: not at all During the past 4 weeks, has your physical & emotional health limited your social activities with family, friends, neighbors, or groups?: not at all During the past 4 weeks, how much bodily pain have you generally had?: mild pain During the past 4 weeks, was someone available to help you if you needed & wanted help?: yes, as much as I wanted During the past 4 weeks, what was the hardest physical activity you could do for at least 2 minutes?: light Can you get to places out of walking distance without help? (For eg., can you travel alone on buses, taxis or drive your car?): Yes Can you go shopping for groceries or clothes without someone's help?: Yes Can you prepare your own meals?: Yes Can you do your housework without help?: Yes Because of any health problems, do you need the help of another person with your personal care needs such as eating, bathing, dressing or getting around the house?: No Can you handle your own money without help?: Yes During the past 4 weeks, how would you rate your health in general?: very good During the past 4 weeks how have things been going for you?: pretty well Are you having difficulties driving your car?: no Do you always fasten your seat belt when you are in a car?: yes, usually During past 4 weeks, have you been bothered by the following: never: Falling or dizzy when standing up, Sexual problems?, Trouble eating well?, Teeth or denture problems?, Problems using the telephone? and Tiredness or fatigue? Have you fallen 2 or more times in the past year?: No Are you afraid of falling?: No Are you a smoker?: no During the past 4 weeks, how many drinks of wine, beer, or other alcoholic beverages did you have?: no alcohol at all Do you exercise for about 20 minutes 3 or more times a week?: no, I usually do not exercise this much Have you been given information to help with the following?: no: Hazards in your house that might hurt you? and no: Keeping track of your medications? How often do you have trouble taking medicines the way you have been told to take them?: sometimes I take medicine as prescribed How confident are you that you can control & manage most of your health problems?: very confident What is your race?: White Activity of Daily Living Bathing - sponge bath, tub bath or shower: receives no assistance (gets in/out by self, if usual bathing means Dressing - getting clothes from closets & drawers, including inner/outer garments & fasteners.: gets clothes & gets completely dressed without help Toileting - going to the 'toilet room' for urine/bowel elimination & cleaning self/arranging clothes: goes to toilet room, cleans self, arranges clothes without help Transfer: moves in & out of bed and chair without help (may use support object) Continence: controls urination/bowel movements completely by self Feeding: feeds self without help Total Score: 0 Information obtained from: patient Using telephone: independent Traveling: independent Shopping: independent Preparing meals: independent Housework: independent Taking medicine: independent Managing money: independent PHQ-9 Over the last 2 weeks, how often have you been bothered by any of the following problems? 1. Little interest or pleasure in doing things: not at all 2. Feeling down, depressed, or hopeless: not at all 3. Trouble falling or staying asleep, or sleeping too much: not at all 4. Feeling tired or having little energy: not at all 5. Poor appetite or overeating: several days 6. Feeling bad about yourself - or that you are a failure or have let yourself or your family down: not at all 7. Trouble concentrating on things, such as reading the newspaper or watching television: not at all 8. Moving or speaking so slowly that other people could have noticed. Or the opposite - being so fidgety or restless that you have been moving around a lot more than usual: not at all 9. Thoughts that you would be better off or of hurting yourself in some way: not at all Total score: 1 Depression Screening Interpretation: Negative Depression Screening Done: Yes 30667 - PHQ-9 Billing: Yes Source: Developed by Drs. Tom Shaffer, Joanie Conte, Sabas Estrada and colleagues, with an educational sherrell from [employer]. Physical Exam Vital Signs: Last Vital Signs Temp 97.3 F 08/02/25 09:56 Pulse 71 08/02/25 09:56 Resp 14 08/02/25 09:56 BP 142/78 H 08/02/25 09:56 Pulse Ox 99 08/02/25 09:56 Oxygen Delivery Method Room Air 08/02/25 09:56 BMI result Body Mass Index 36.3 Office Procedures Cerumen Removal From which ear canal was the cerumen removed: right Removal: irrigation Notes: patient tolerated procedure well, no complications and ear canal clear [id number] Irrigation/Lavage Vision Screening Right Eye: 20/30 Left Eye: 20/25 Bilateral: 20/25 Color: Pass Corrected: Pass (wearing glasses) 30880 - Vision Screening Results AMB Hemoglobin A1c AMB Hemoglobin A1c 5.5 % Last Edit by Arminda Doe MA on 08/02/25 10:07 Results Reviewed Results Reviewed: Laboratory Last Values Hgb A1c (Clinic) 5.5 % (4.0-6.0) 08/02/25 09:55 Assessment & Plan Assessment & Plan (1) Encounter for subsequent annual wellness visit (AWV) in Medicare patient: Onset Date: ~08/02/25 Code(s): Z00.00 - Encounter for general adult medical examination without abnormal findings (2) Severe obstructive sleep apnea: Onset Date: ~06/2025 Comment: CPAP managed by [facility] Code(s): G47.33 - Obstructive sleep apnea (adult) (pediatric) (3) Asthma: Code(s): J45.909 - Unspecified asthma, uncomplicated Qualifiers: Asthma severity: moderate Asthma persistence: persistent Asthma complication type: uncomplicated Qualified Code(s): J45.40 - Moderate persistent asthma, uncomplicated (4) Hearing loss: Code(s): H91.90 - Unspecified hearing loss, unspecified ear Qualifiers: Hearing loss type: unspecified Laterality: bilateral Qualified Code(s): H91.93 - Unspecified hearing loss, bilateral (5) Eczema: Code(s): L30.9 - Dermatitis, unspecified Qualifiers: Eczema type: unspecified Qualified Code(s): L30.9 - Dermatitis, unspecified (6) PVD (peripheral vascular disease): Comment: DECLINED STATIN, ASA OR LABS HE WAS ACTIVE W [facility] PRN FU ONLY Code(s): I73.9 - Peripheral vascular disease, unspecified (7) History of DVT of lower extremity: Comment: provoked, after flight; RLE was on eliquis now off Code(s): Z86.718 - Personal history of other venous thrombosis and embolism (8) Obesity (BMI 30-39.9): Code(s): E66.9 - Obesity, unspecified (9) Right ear impacted cerumen: Code(s): H61.21 - Impacted cerumen, right ear (10) Localized swelling of both lower legs: Code(s): R22.43 - Localized swelling, mass and lump, lower limb, bilateral (11) Colon cancer screening declined: Onset Date: ~12/2024 Code(s): Z53.20 - Procedure and treatment not carried out because of patient's decision for unspecified reasons (12) Influenza vaccination declined: Code(s): Z28.21 - Immunization not carried out because of patient refusal (13) Tetanus, diphtheria, and acellular pertussis (Tdap) vaccination declined: Code(s): Z28.21 - Immunization not carried out because of patient refusal (14) Poor short term memory: Comment: will need to monitor going FWD Code(s): R41.3 - Other amnesia Plan . Orders: Orders AMB Hemoglobin A1c Today Z13.9 - Encounter for screening, unspecified Referrals Audiology Referral H91.90 - Unspecified hearing loss, unspecified ear Medications: New triamcinolone acetonide 0.1% 1 appl topical BID 15 grams 2RF furosemide (Lasix) 20 mg PO DAILY 90 tabs 0RF potassium chloride ER 10 mEq PO DAILY 90 caps 0RF Patient Instructions: Patient Instructions - We will perform a flush of your right ear today to remove wax. - I have sent three new medications to your pharmacy. - One medication is a cream called triamcinolone. Apply it only to the itchy patches on your feet as needed. - The other two medications are a water pill (furosemide) and a potassium pill. Take these two pills together in the morning. - You can take these new medications with your daily vitamins and knee supplement. - Please have your son print the handicap placard form from the [employer] website and bring it with you to your next visit. - We will schedule you for a follow-up appointment in about three months Health screenings for men You should visit your health care provider regularly, even if you feel healthy. The purpose of these visits is to: Screen for medical issues Assess your risk for future medical problems Encourage a healthy lifestyle Update vaccinations and other preventive care services Help you get to know your provider in case of an illness Information Even if you feel fine, you should still see your provider for regular checkups. These visits can help you avoid problems in the future. For example, the only way to find out if you have high blood pressure is to have it checked regularly. High blood sugar and high cholesterol level also may not have any symptoms in the early stages. Simple blood tests can check for these conditions. There are specific times when you should see your provider or receive specific health screenings. The [place] Preventive Services Task Force publishes a list of recommended screenings. Below are screening guidelines for men ages 40 to 64. BLOOD PRESSURE SCREENING Have your blood pressure checked at least once every year. Watch for blood pressure screenings in your area. Ask your provider if you can stop in to have your blood pressure checked. Ask your provider if you need your blood pressure checked more often if: You have diabetes, heart disease, kidney problems, or are overweight or have certain other health conditions You have a first-degree relative with high blood pressure You are Black Your blood pressure top number is from 120 to 129 mm Hg, or the bottom number is from 70 to 79 mm Hg If the top number is 130 mm Hg or greater or the bottom number is 80 mm Hg or greater, this is considered stage 1 hypertension. Schedule an appointment with your provider to learn how you can lower your blood pressure. Effects of age on blood pressure CHOLESTEROL SCREENING Cholesterol screening should begin at age 35 for men with no known risk factors for coronary heart disease. Repeat cholesterol screening should take place: Every 5 years for men with normal cholesterol levels More often if changes occur in lifestyle (including weight gain and diet) More often if you have diabetes, heart disease, kidney problems, or certain other conditions COLORECTAL CANCER SCREENING If you are under age 45, talk to your provider about getting screened. You may need to be screened if you have a strong family history of colon cancer or polyps. Screening may also be considered if you have risk factors such as a history of inflammatory bowel disease or polyps. If you are age 45 to 75, you should be screened for colorectal cancer. There are several screening tests available: A stool-based fecal occult blood (gFOBT) or fecal immunochemical test (FIT) every year A stool sDNA test every 1 to 3 years Flexible sigmoidoscopy every 5 years or every 10 years with stool testing FIT done every year CT colonography (virtual colonoscopy) every 5 years Colonoscopy every 10 years You may need a colonoscopy more often if you have risk factors for colorectal cancer, such as: Ulcerative colitis A personal or family history of colorectal cancer A history of growths in your colon called adenomatous polyps DENTAL EXAM Go to the dentist once or twice every year for an exam and cleaning. Your dentist will evaluate if you have a need for more frequent visits. DIABETES SCREENING All adults who do not have risk factors for diabetes should be screened starting at age 35 and repeated every 3 years. If you have other risk factors for diabetes, such as a first degree relative with diabetes, overweight or obesity, high blood pressure, prediabetes, or a history of heart disease, you may be tested more often. If you are overweight and have other risk factors, such as high blood pressure and are planning to become , screening is recommended. EYE EXAM Have an eye exam every 2 to 4 years ages 40 to 54 and every 1 to 3 years ages 55 to 64. Your provider may recommend more frequent eye exams if you have vision problems or glaucoma risk. Have an eye exam that includes an examination of your retina (back of your eye) at least every year if you have diabetes. IMMUNIZATIONS Commonly needed vaccines include: Flu shot: get one every year COVID-19 vaccine: ask your provider what is best for you Tetanus-diphtheria and acellular pertussis (Tdap) vaccine: have as one of your tetanus-diphtheria vaccines if you did not receive it as an adolescent Tetanus-diphtheria: have a booster (or Tdap) every 10 years Varicella vaccine: receive 2 doses if you never had chickenpox or the varicella vaccine and were born in 1979 or after Hepatitis B vaccine: receive 2, 3, or 4 doses, depending on your exact circumstances, if you did not receive these as a child or adolescent, until age 59 Shingles (herpes zoster) vaccine: at or after age 50 Ask your provider if you should receive other immunizations, especially if you have certain medical conditions, such as diabetes or are at increased risk for some diseases such as pneumonia. INFECTIOUS DISEASE SCREENING Screening for hepatitis C: all adults ages 18 to 79 should get a one-time test for hepatitis C. Screening for human immunodeficiency virus (HIV): all people ages 15 to 65 should get a one-time test for HIV. Depending on your lifestyle and medical history, you may need to be screened for infections such as syphilis, chlamydia, and other infections. LUNG CANCER SCREENING You should have an annual screening for lung cancer with low-dose computed tomography (LDCT) if: You are age 50 to 80 years AND You have a 20 pack-year smoking history AND You currently smoke or have quit within the past 15 years OSTEOPOROSIS SCREENING If you are age 50 to 64 and have risk factors for osteoporosis, you should discuss screening with your provider. Risk factors can include long-term steroid use, low body weight, smoking, heavy alcohol use, having a fracture after age 50, or a family history of hip fracture or osteoporosis. Osteoporosis PHYSICAL EXAM All adults should visit their provider from time to time, even if they are healthy. The purpose of these visits is to: Screen for diseases Assess risk of future medical problems Encourage a healthy lifestyle Update vaccinations and other preventive care services Maintain a relationship with a provider in case of an illness Your height, weight, and body mass index (BMI) should be checked at every exam. During your exam, your provider may ask you about: Depression and anxiety Diet and exercise Alcohol and tobacco use Safety, such as use of seat belts and smoke detectors Your medicines and risk for interactions PROSTATE CANCER SCREENING If you're 55 through 69 years old, before having the test, talk to your provider about the pros and cons of having a PSA test. Ask about: Whether screening decreases your chance of dying from prostate cancer. Whether there is any harm from prostate cancer screening, such as side effects from testing or overtreatment of cancer when discovered. Whether you have a higher risk of prostate cancer than others. If you are age 55 or younger, screening is not generally recommended. You should talk with your provider about if you have a higher risk for prostate cancer. Risk factors include: Having a family history of prostate cancer (especially a brother or father) Being If you choose to be tested, the PSA blood test is repeated over time (yearly or less often), though the best frequency is not known. Prostate examinations are no longer routinely done on men with no symptoms. Prostate cancer SKIN EXAM Your provider may check your skin for signs of skin cancer, especially if you're at high risk. People at high risk include those who have had skin cancer before, have close relatives with skin cancer, or have a weakened immune system. TESTICULAR EXAM The [place] Preventive Services Task Force (USPSTF) now recommends against performing testicular self-exams. Doing testicular self-exams has been shown to have little to no benefit. Quality Reporting (2019) Adult ([facility] 138//) Smoking risk assessment performed?: Yes Patient Tobacco Use Status: Never used Tobacco Depression screening performed: Yes Screen Results: Yes Negative screen Recommended changes not done: EKG Patient refused: Yes Systolic BP not done?: No Diastolic BP not done?: No BMI screening not done: No BMI High - Follow Up: Yes High-plan Sexual Activity Screening ([facility] 153) Sexually active?: Yes Immunizations ([facility] 147, 117) Annual Influenza Vaccine: No Flu Vaccine not done: patient reason Measles Antibody Test: No Mumps Antibody Test: No Rubella Antibody Test: No Varicella Antibody Test: No Anti Hepatitis A IgG Antigen test: No Anti Hepatitis B Virus Surface Ab test: No Fall Risk Screening ([facility] 139) Last assessed Fall Risk: 08/02/25 Fall risk assessment: No Falls in past year Dementia Assessment ([facility] 149) Cognitive assessment recorded: Yes (07/26 on 6 CIT failed delay recall ) Assessment of cognition with standardized tool: Yes Depression/Bipolar (159/160/161/177) PHQ-9: Total score: 1 Ophthalmol:Cataracts Visual Acuity (133) Visual acuity exam performed: Yes (see results) Coding Level of Care Code Medicare Subsequent (G0439) Est Pt Level 4 (38469) Diagnoses Encounter for subsequent annual wellness visit (AWV) in Medicare patient Z00.00 Severe obstructive sleep apnea G47.33 Moderate persistent asthma without complication J45.40 Asthma severity: moderate Asthma persistence: persistent Asthma complication type: uncomplicated Bilateral hearing loss, unspecified hearing loss type H91.93 Hearing loss type: unspecified Laterality: bilateral Eczema, unspecified type L30.9 Eczema type: unspecified PVD (peripheral vascular disease) I73.9 History of DVT of lower extremity Z86.718 Obesity (BMI 30-39.9) E66.9 Right ear impacted cerumen H61.21 Localized swelling of both lower legs R22.43 Colon cancer screening declined Z53.20 Influenza vaccination declined Z28.21 Tetanus, diphtheria, and acellular pertussis (Tdap) vaccination declined Z28.21 Poor short term memory R41.3 CPT Codes Advance Care Planning - Time spent: 16-45 minutes ([id number]) Office Procedure - CPT: 28967-Vyi Irrigation/Lavage ([id number]) Vision Screening - Vision Screenin - Vision Screening ([id number]) Additional Codes PHQ-9 - 82345 - PHQ-9 Billing: Yes ([id number]) Advance Care Planning Advance Care Planning discussion: Exists, not on file Date of discussion: 08/02/25 Who was present: Self He is unsure of his wishes, wants to review this his will likely be his HCP Forms completed: Health Care Proxy, MOLST and Living will Time spent: 16-45 minutes Actual minutes spent: 16
[2025-08-02 09:56] VITALS: BP 142/78; PULSE 71; RESP 14; TEMP 36.3; O2SAT 99; BMI 36.3
--- OUTSIDE RECORDS SUMMARY | 2025-08-02 10:52 | XMS_ITS | Encounter Summary ---
Author Organization [facility] Address [address] [place] [address] Phone Care Team Providers Care Congressional District Aide Name Role Phone Nevin Keita MD Primary Care Provid er Ernesto Stewart DO Primary Care Provider [phone] Encounter Details Date Type Department Care Team (Late st Contact Info) Description 01/08/2022 Transcribe Orders [facility] [address] [place] [address] Nevin Keita MD [address] [id number] [email or web address] Social History Tobacco Use Types Packs/Day [...] on filedocumented in this encounter Care Teams [place] Aide Relationship Specialty Start Date End Date Nevin Keita MD [address] [place] [address] [email or web address] PCP - General Family Medicine 08/29/21 Ernesto Stewart DO [address] [place] [phone] PCP - General Internal Medicine 12/14/23 documented as of this encounter Additional Source Comments The information contained in this document represents components of the legal health record. It is not the complete legal health record.[facility]
--- OUTSIDE RECORDS SUMMARY | 2025-08-02 10:52 | XMS_ITS | Clinical Summary ---
Author Organization [facility] Address [address] [place] [address] Phone Care Team Providers Care Oil Dispatcher Name Role Phone Ernesto Stewart DO Primary Care Provider [phone] Allergies No known active allergies Medications acetaminophen [...] 0 Refills, Maintenance, 07/27/24 11:29:00 AM EDT, [id number], Partial fill upon patient request if the [...] FOBT 1996 SIGMOIDOSCOPY 1996 VIRTUAL COLONOSCOPY 1996 RSV VACCINE (1 - Risk 50-74 years 1-dose series) 2001 ZOSTER VACCINES (1 of 2) 2001 PNEUMOCOCCAL VACCINES (50+ years) (2 of 2 - PCV) 10/09/2022 10/09/2021 INFLUENZA VACCINE (#1) 2025 08/29/2021 COVID-19 VACCINE (3 - 5- season) 2025 01/10/2021, 12/16/2020 CREATININE LEVEL 09/30/2025 09/30/2024, , 08/26/2021, Additional [...] Date/Time Associated Diagnosis Comments COMPREHENSIVE METABOLIC PANEL (CMP) Routine 09/30/2024 8:26 AM EST Acute cough from Last 3 Months or Most Recently Relevant to Health Maintenance Results * (ABNORMAL) Comprehensive metabolic panel (09/30/2024 8:26 AM EST) SODIUM 135 133 - 146 mmol/L [facility] POTASSIUM 4.5 3.3 - 5.1 mmol/L [facility] CHLORIDE 99 96 - 108 mmol/L [facility] CO2 27 21 - 35 mmol/L [facility] BUN 15 6 - 19 mg/dL [facility] CREATININE 0.90 0.5 - 1.5 mg/dL [facility] GLUCOSE 151(H) 70 - 99 mg/dL [facility] ALBUMIN 4.0 3.9 - 4.8 g/dL [facility] TOTAL PROTEIN 7.3 6.5 - 8.0 g/dL [facility] CALCIUM 9.3 8.4 - 10.3 mg/dL [facility] ALKALINE PHOSPHATASE 88 39 - 117 U/L [facility] TOTAL BILIRUBIN 0.9 0.0 - 1.2 mg/dL [facility] AST 28 0 - 37 U/L [facility] ALT 24 0 - 40 U/L [facility] GLOBULIN 3.3 1 - 4.8 g/dL [facility] EGFR 90 >59 mL/min/1.7 3m2 [facility] Comment:Estimated glomerular filtration rate calculated using the CKD-EPI refit equation. ANION GAP 14 10 - 20 mmol/L [facility] Blood 09/30/2024 8:26 AM EST 09/30/2024 8:30 AM EST us Divya Leger Keaton DIRECTOR OF CHILD WELFARE SERVICES LAB BLOOD BKR ORDERABLE S Final Result [facility] [address] [place] [address] from Last 3 Months or Most Recently Relevant to Health Maintenance Insurance MEDICARE HMO REPLACEMENT MEDICARE HMO REPLACEMENT MEDICARE HMO REPLACEMENT MEDICARE HMO REPLACEMENT MEDICARE HMO REPLACEMENT MEDICARE HMO REPLACEMENT MEDICARE HMO REPLACEMENT MEDICARE HMO REPLACEMENT [facility] MEDICARE HMO REPLACEMENT Advance Directives For more information, please contact: [phone] (9AM - 5PM Mary/[facility], Friday-Friday) * Full Code (Latest Code Status on File) Date Activated Date Inactivated Comments 08/24/2021 10:27 PM Question Answer Comments Code Status Confirmed With: Patient Care Teams Oil Dispatcher Relationship Specialty Start Date End Date Ernesto Stewart DO PCP - General Internal Medicine 12/14/23 Additional Source Comments The information contained in this document represents components of the legal health record. It is not the complete legal health record.[facility]
--- OUTSIDE RECORDS SUMMARY | 2025-08-02 10:52 | XMS_ITS | Encounter Summary ---
Author Organization [facility] Address [address] [place] [address] Phone Care Team Providers Care Cloth Worker Name Role Phone Pcp, Unknown Primary Care Provider Nevin Sotelo MD Primary Care Provid er Ernesto Stewart DO Primary Care Provider [phone] Encounter Details Date Type Department Care Team (Late st Contact Info) Description 08/25/2021 Procedure Pass [facility], Ct Scan - [address] [address] Social History Tobacco Use Types Packs/Day Years [...] documented as of this encounter Care Teams Cloth Worker Relationship Specialty Start Date End Date Pcp, Unknown PCP - General 08/24/21 08/28/21 Nevin Keita MD [address] [place] [address] [email or web address] PCP - General Family Medicine 08/29/21 Ernesto Stewart DO [address] [place] [address] [email or web address] PCP - General Internal Medicine 12/14/23 documented as of this encounter Additional Source Comments The information contained in this document represents components of the legal health record. It is not the complete legal health record.[facility]
--- OUTSIDE RECORDS SUMMARY | 2025-08-02 10:52 | XMS_ITS | Encounter Summary ---
Author Organization [facility] Address [address] [place] [address] Phone Care Team Providers Care Visual Basic .Net Developer Name Role Phone Pcp, Unknown Primary Care Provider Nevin Sotelo MD Primary Care Provid er Ernesto Stewart DO Primary Care Provider [phone] Encounter Details Date Type Department Care Team (Late st Contact Info) Description 08/24/2021 Procedure Pass [facility] [address] [place] [address] Social History Tobacco Use Types Packs/Day Years [...] 08/24/2021 5:10 PM Linda Trivedi RN * [place] Suicide Severity Rating Scale (Screener/Recent Self-Report) Question Answer Date of Assessment Author 1. Wish to be (Past 1 Month) No 021 5:10 PM Linda Trivedi RN 2. Non-Specific Active Suici cedric Thoughts (Past 1 Month) No 08/24/2021 5:10 PM EST Yenifer Ballard RN 6. Suicidal Behavior (Lifetime) No 5:10 PM EST Lnida Ballard RN documented as of this encounter Plan of Treatment Not on file documented as of this encounter Visit Diagnoses Not on filedocumented in this encounter Additional Health Concerns Infection Onset Date Last Indicated Resolved Time CoV-Risk Comment:2 neg covid 08/24/2021 08/25/2021 08/29/2021 8:[address] RSV 08/25/2021 08/25/2021 09/01/2021 1:22 AM EST documented as of this encounter Care Teams Visual Basic .Net Developer Relationship Specialty Start Date End Date Pcp, Unknown PCP - General 08/24/21 08/28/21 Nevin Keita MD [address] [address] [email or web address] PCP - General Family Medicine 08/29/21 Ernesto Stewart DO [address] [address] [email or web address] PCP - General Internal Medicine 12/14/23 documented as of this encounter Additional Source Comments The information contained in this document represents components of the legal health record. It is not the complete legal health record.[facility]
--- OUTSIDE RECORDS SUMMARY | 2025-08-02 10:52 | XMS_ITS | Encounter Summary ---
Author Organization [facility] Address [address] [place] [address] Phone Care Team Providers Care Last Dipper Name Role Phone [email or web address] Primary Care Provider [phone] Reason for Referral * Outpatient Procedure - Closed Specialty Diagnoses / Procedures Referred By Nick t Referred To Contact Radiology Diagnoses Edema, unspecified type Procedures US Lower Extremity Veins Duplex (Right) Laury Patten NP [address] [place] [address] Phone: tel: fax: [email or web address] Referral ID Status Reason Start Date Expiration Date Visits Re quested Visits Authorized [id number] Closed 02/17/2024 02/16/2025 1 1 Encounter Details Date Type Department Care Team (Latest Contact Info) Description 02/17/2024 Transcribe Orders Virtual Department [address] [place] [address] Laury Patten NP [address] [place] [phone] [email or web address] Edema, unspecified type (Primary Dx) Social History [...] clinician's provided indication for this examination in [facility]:Outside Radiology Order; Edema; leg pain TECHNIQUE: Lower [...] x 1.3 cm Huff cyst. Laury Patten BRAKE OPERATOR HELPER CV US VASCULAR Final Result documented in this encounter Visit Diagnoses Diagnosis Edema, unspecified type- Primary Edema, unspecified type documented in this encounter Care Teams Last Dipper Relationship Specialty Start Date End Date Ernesto Stewart DO PCP - General Internal Medicine 12/14/23 documented as of this encounter Additional Source Comments The information contained in this document represents components of the legal health record. It is not the complete legal health record.[facility]
--- OUTSIDE RECORDS SUMMARY | 2025-08-02 10:52 | XMS_ITS | Encounter Summary ---
Author Organization [facility] Address [address] [place] [address] Phone Care Team Providers Care Clinical Secretary Name Role Phone Nevin Keita MD Primary Care Provid er Ernesto Stewart DO Primary Care Provider [phone] Encounter Details Date Type Department Care Team (Late st Contact Info) Description 01/22/2022 Procedure Pass [facility] [address] [address] Social History Tobacco Use Types Packs/Day Years [...] on filedocumented in this encounter Care Teams Clinical Secretary Relationship Specialty Start Date End Date Nevin Keita MD 22 [facility] [address] [place] [address] [email or web address] PCP - General Family Medicine 08/29/21 Ernesto Stewart DO [address] [place] [address] [email or web address] PCP - General Internal Medicine 12/14/23 documented as of this encounter Additional Source Comments The information contained in this document represents components of the legal health record. It is not the complete legal health record.[facility]
== END 2025-08-02 10:50 | disposition home or self-care (01) ==
LOC: HO.HMCFM 09:39
PROVIDERS: PCP Nurse Practitioner Family; Visit Provider Nurse Practitioner Family
DX: Z00.00 Encounter for general adult medical examination without abnormal findings (principal); G47.33 Obstructive sleep apnea (adult) (pediatric); J45.40 Moderate persistent asthma, uncomplicated; L30.9 Dermatitis, unspecified; H91.93 Unspecified hearing loss, bilateral; H61.21 Impacted cerumen, right ear; I73.9 Peripheral vascular disease, unspecified; R22.43 Localized swelling, mass and lump, lower limb, bilateral; R41.3 Other amnesia; E66.9 Obesity, unspecified; Z68.36 Body mass index [BMI] 36.0-36.9, adult; Z53.20 Procedure and treatment not carried out because of patient's decision for unspecified reasons; Z28.21 Immunization not carried out because of patient refusal; Z13.9 Encounter for screening, unspecified; Z86.718 Personal history of other venous thrombosis and embolism

== ENCOUNTER → 2025-08-02 09:39 | Outpatient (BNVA) | payer MEDICARE, SELFPAY | PROVIDERS: PCP Nurse Practitioner Family; Visit Provider Nurse Practitioner Family | DX: Z00.00 Encounter for general adult medical examination without abnormal findings (principal); J45.40 Moderate persistent asthma, uncomplicated; G47.33 Obstructive sleep apnea (adult) (pediatric); L30.9 Dermatitis, unspecified; M25.561 Pain in right knee; R60.0 Localized edema; I73.9 Peripheral vascular disease, unspecified; E66.9 Obesity, unspecified; H61.21 Impacted cerumen, right ear; R41.3 Other amnesia; Z13.1 Encounter for screening for diabetes mellitus; Z28.21 Immunization not carried out because of patient refusal; Z86.718 Personal history of other venous thrombosis and embolism | CPT/HCPCS: 69209; 83036; 96127; 99212; 99497 ==

== ENCOUNTER 2025-09-27 15:39 | Outpatient (AMB) | payer MEDICARE, SELFPAY ==
--- OUTSIDE RECORDS SUMMARY | 2024-09-30 08:15 | XMS_ITS | Encounter Summary ---
Author Organization [facility] Address [address] [facility] [address] [place] [phone] Phone Care Team Providers Care Investment Accountant Name Role Phone Ernesto Stewart Primary Care Provider [phone] Encounter Details Date Type Department Care Team (Late st Contact Info) Description 09/30/2024 8:15 AM EST Hospital Encounter [facility] [address] [place] [id number] Divya Pugh, CHEMIST PROTEINS [address] [place] [address] [email or web address] Social History Tobacco Use Types Packs/Day Years Used Date Smoking Tobacco: Never Smokeless Tobacco: Never Alcohol Use Standard Drinks/Week Comments Yes 0 (1 standard drink = 0.6 oz pur e alcohol) rare Education Answer Date Recorded Are you interested in more education? Not on martinez e 01/24/2023 Are you concerned about learning? Not on file 01/24/2023 No 01/24/2023 No 01/24/2023 Digital Access Answer Date Recorded No 02/22/2023 No 02/22/2023 Reliable internet access at home? Not on file 02/22/2023 Device with a working camera? Not on file Intimate Partner Violence Answer Date R ecorded Are you denied basic needs s uch as food, clothing, or medical care? No 02/25/2024 In the past 12 months have y ou been in a relationship with a person who hurts, threatens, or tries to control you? No 02/25/2024 Are you denied basic needs s uch as food, clothing, or medical care? No 02/25/2024 In the past 12 months have y ou been in a relationship with a person who hurts, threatens, or tries to control you? No 02/25/2024 Sex and Gender Information Value Date Recorded Sex Assigned at Male 02/25/2024 6:13 PM EDT Legal Sex Male 8:05 AM EST Gender Identity Male 02/25/2024 6:13 PM EDT Sexual Orientation Don't know 02/25/2024 6: 13 PM EDT documented as of this encounter Plan of Treatment Not on file documented as of this encounter Procedures Procedure Name Priority Date/Time Associated Diagnosis Comments XR CHEST PA AND LATERAL 2 VIEWS Urgent/patient waiting 09/30/2024 8:19 AM EST Acute cough documented in this encounter Results * XR CHEST PA AND LATERAL 2 VIEWS (09/30/2024 8:19 AM EST) Anatomical Region Laterality Modality Chest Computed Radiogr aphy 09/30/2024 8:46 AM EST Impressions 09/30/2024 8:47 AM EST Patchy opacities in the left lower lung, likely atelectasis, aspiration or early pneumonia. Narrative 09/30/2024 8:47 AM EST XR CHEST PA AND LATERAL 2 VIEWS Referring clinician's provided indication for this examination in [facility]: Cough COMPARISON: CT CHEST PULMONARY ANGIOGRAM (ACUTE) FINDINGS: Devices/Tubes/Lines: None. Lungs: Patchy opacities in the left lower lung. No focal consolidation or pulmonary edema. Pleura: No pleural effusion or pneumothorax. Heart/Mediastinum: Similar cardiomegaly. Tortuous thoracic aorta. Bones/Soft Tissues: Multilevel degenerative changes of the spine. Procedure Note Alma Chery MBBS - 09/30/2024 XR CHEST PA AND LATERAL 2 VIEWS Referring clinician's provided indication for this examination in [facility]:Cough COMPARISON: CT CHEST PULMONARY ANGIOGRAM (ACUTE) FINDINGS: Devices/Tubes/Lines: None. Lungs: Patchy opacities in the left lower lung. No focal consolidation orpulmonary edema. Pleura: No pleural effusion or pneumothorax. Heart/Mediastinum: Similar cardiomegaly. Tortuous thoracic aorta. Bones/Soft Tissues: Multilevel degenerative changes of the spine. IMPRESSION: Patchy opacities in the left lower lung, likely atelectasis, aspiration orearly pneumonia. Divya Pugh CHEMIST PROTEINS IMG XR CHEST Final R esult documented in this encounter Visit Diagnoses Not on filedocumented in this encounter Care Teams Investment Accountant Relationship Specialty Start Date End Date Ernesto Stewart DO [email or web address] PCP - General Internal Medicine 12/14/23 documented as of this encounter Additional Source Comments The information contained in this document represents components of the legal health record. It is not the complete legal health record.[facility]
--- NOTE | 2025-09-27 15:43 | A.OFFVIS_ITS ---
Vital Signs 09/27/25 15:44 Height 5 ft 11 in Weight 263 lb 6 oz BMI 36.7 BP 100/68 Blood Pressure Location Rt brachial Position Sitting Pulse 72 Pulse Source Pulse Oximeter Pulse Oximetry (%) 98 Oxygen Delivery Method Room Air Intake Visit Reasons: SS Follow up Allergies acetaminophen (From Tylenol) Adverse Reaction (Severe, Verified 09/27/25 15:48) Hives HPI Comments Details: Kai is a pleasant 75-year-old male, never smoker with underlying asthma, peripheral vascular disease and history of DVT right lower extremity previously on Eliquis. He initially reported worsening asthma symptoms after being diagnosed and treated with pneumonia in September through [facility]. The patient's pulmonary history includes asthma since the and a history of owning birds, with a discussion about the risk of hypersensitivity pneumonitis. He reports current shortness of breath and is not consistently using his Symbi dank. He continues to report dyspnea with exertion and intermittent dry cough. He denies any visits to urgent care or hospitalizations related to respiratory distress since the last visit. He has a diagnosis of severe sleep apnea and expresses dislike for his CPAP machine due to discomfort. He reports being a mouth breather and uses a strap to keep his mouth closed, but his current nasal mask does not stay in place. Regarding CPAP adherence, the patient uses the machine nightly, but often for only 3-6 hours, and removes it in the manager placement due to discomfort. Data from the last 30 days indicates he used the device for more than four hours on only 19 days (63% of the time), however using on a nightly basis. He also experiences significant nasal dryness and sneezing, despite using the machine's humidifier, which he notes runs out of water within two to three hours. He admits to never having cleaned the CPAP machine. Pulmonology History - Severe obstructive sleep apnea diagnosed via sleep study. - Asthma diagnosed in the . - Pneumonia earlier this year, complicated by two rib fractures from coughing. - History of RSV infection. - Reports current shortness of breath and a sporadic cough. - History of bird exposure (parrot and chickens) with counseling on hypersensitivity pneumonitis risk. Results - Sleep Study (Past): Revealed severe sleep apnea. - During the test, oxygen was less than 88% for 77 minutes. - Chest X-ray (Past): Performed at [facility] during his episode of pneumonia earlier this year. [facility] Medical History (Updated 09/27/25 @ 16:11 by Francine Zavala NP) Non-restorative sleep No pertinent family history Blood clot in vein Surgical History (Updated 08/02/25 @ 11:11 by Giulia Sharma, [facility]) Colon cancer screening declined (~12/2024) No pertinent past surgical history Social History Household Members: Spouse Both parents involved: No Caregiver staying overnight: No Housing: House Are you a primary intensive care medicine specialist to a significant other at home: No Do you presently have visiting nurse or other home services: No 75 years or older and lives alone: No Alcohol intake: never Patient Tobacco Use Status: Never used Tobacco e-Cigarette/Vaping Use: Never Used Second Hand Smoke Exposure: No service: No Current occupational status: retired Current occupational exposures/hazards: No Cognitive needs: No Hearing needs: No Vision needs: Yes (wear glasses) Review of Systems Narrative Const Denies chills, Denies excessive sweating, Denies fever(s), Denies headache(s) and Denies night sweats Eyes Denies dry eyes, Denies irritation and Denies itchy eyes ENT Reports Normal hearing present, Denies headache(s), Denies post nasal drip and Denies sore throat Card Denies chest pain, Denies chest pain at rest, Denies chest pain with activity, Denies claudication, Reports dyspnea on exertion, Denies orthopnea and Denies paroxysmal nocturnal dyspnea Resp Denies chest congestion, Reports cough, Denies hemoptysis, Denies excessive phlegm production, Denies pain on inspiration, Denies pain with cough, Reports dyspnea on exertion, Denies stridor and Denies wheezing Musc Denies myalgias Neuro Reports Normal hearing present and Denies headache(s) Endo Denies excessive sweating Jatinder/Lymph Denies lymphadenopathy Aller/Immun Denies itchy eyes, Denies seasonal rhinorrhea and Denies wheezing Physical Exam Exam Exam: Vital Signs: Last Vital Signs Pulse 72 09/27/25 15:44 BP 100/68 09/27/25 15:44 Pulse Ox 98 09/27/25 15:44 Oxygen Delivery Method Room Air 09/27/25 15:44 BMI result Body Mass Index 36.7 Const General: cooperative, healthy appearing, comfortable, no acute distress, well developed and alert Nutritional Appearance: obese Orientation/consciousness: patient oriented x3 Limitations: no limitations HEENT Head: Yes normal to inspection, Yes normocephalic and Yes atraumatic Ears: hearing grossly normal bilaterally and external ears normal Eyes General: appearance normal, both eyes and all related structures Eyelids: Yes eyelids normal Sclerae: sclerae normal EOM: EOMs intact bilaterally Neck Neck: Yes normal visual inspection and Yes no lymphadenopathy Lymphatic: no lymphadenopathy noted Chest Chest palpation & inspection: normal inspection of the chest Resp Effort & Inspection: normal respiratory effort, able to speak in complete sentences, no audible wheezes, no cough, no stridor, not tachypneic, no tripod positioning and no use of accessory muscles Auscultation: clear to auscultation bilaterally Cardio Jugular venous distension: no JVD Rate: regular rate Rhythm: regular rhythm Skin Other: warm, dry General skin exam: no rashes or lesions noted Neuro General: patient oriented x3 Cranial nerves: Yes Normal hearing present Cognition (Neuro): normal cognition Gait exam (Neuro): Normal gait present Psych Appearance: grossly normal and well kempt Speech and movement: Normal speech and movement present and Clear speech present Affect: normal affect Attitude: cooperative Thought process: Normal thought process present Thought content: Normal thought content present Insight: Good insight present (Psych) Judgement: Good judgement present (Psych) Assessment & Plan Assessment & Plan (1) Asthma: Code(s): J45.909 - Unspecified asthma, uncomplicated Category: Medical Qualifiers: Asthma complication type: uncomplicated Asthma persistence: persistent Asthma severity: moderate Qualified Code(s): J45.40 - Moderate persistent asthma, uncomplicated (2) Severe obstructive sleep apnea: Onset Date: ~06/2025 Comment: CPAP managed by [facility] Code(s): G47.33 - Obstructive sleep apnea (adult) (pediatric) Category: Medical (3) Nocturnal hypoxemia: Code(s): G47.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 He will contact his DME provider ([facility]) to trial a full-face mask, which may improve comfort for a mouth breather. To address dryness, using a room humidifier was recommended. Education was provided on weekly CPAP machine cleaning with mild soapy water for all parts, and a vinegar-water solution for the water tub, which may also reduce his sneezing. An at-home overnight oximetry study will be ordered to assess oxyg enation on CPAP, as the patient declined an in-lab study. The patient reports shortness of breath and is not adherent with his maintenance powder inhaler. He was instructed to use his inhaler, two puffs twice daily, and to rinse his mouth after each use. He was advised to use only one of his maintenance inhalers. An updated chest X-ray was ordered, as his last was during an acute illness. Follow-up will occur in three months to assess his symptoms. We will follow up in three months to review the oximetry results and his overall progress. All questions were answered and patient is in agreement of plan. Patient Instructions - Call your CPAP supply company, [employer], to ask for a full face mask to improve comfort. - Clean your CPAP mask, tubing, and headgear once a week using mild soap and water. - This may help with the sneezing you are experiencing. - Use a humidifier in your bedroom at night to help with nasal dryness. - Keep up with changing the filters on your CPAP machine; [employer] should supply these. - You will receive an oxygen monitoring device in the mail. - Wear it like a watch overnight while using your CPAP, and then mail it back in the provided box. - Use your powder inhaler every day as prescribed: take two puffs in the morning and two puffs in the evening. - Rinse your mouth with water after using it. - Please get an updated chest X-ray. - You can have this done at [place] or [facility], whichever you prefer. - We will see you back in the office in about three months. Orders: Orders XR chest 2V 09/27/25 R06.09 - Other forms of dyspnea Overnight Pulse Oximetry Today G47.34 - Idiopathic sleep related nonobstructive alveolar hypoventilation Medications: Discontinued fluticasone propion-salmeterol 113-14 mcg/actuation ([employer]piClick) Discontinued Reason: Patient Completed Course 1 inh inhalation BID 1 ea 6RF Coding Level of Care Code Est Pt Level 4 (66244) Diagnoses Moderate persistent asthma without complication J45.40 Asthma complication type: uncomplicated Asthma persistence: persistent Asthma severity: moderate Severe obstructive sleep apnea G47.33 Nocturnal hypoxemia G47.34
[2025-09-27 15:44] VITALS: BP 100/68; PULSE 72; O2SAT 98; BMI 36.7
--- OUTSIDE RECORDS SUMMARY | 2025-09-27 18:53 | XMS_ITS | Encounter Summary ---
Author Organization [facility] Address [address] [place] [address] Phone Care Team Providers Care Masonry Teacher Name Role Phone Nevin Keita MD Primary Care Provid er Ernesto Stewart DO Primary Care Provider Encounter Details Date Type Department Care Team (Late st Contact Info) Description 01/22/2022 Procedure Pass [facility] [address] [place] [address] Social History Tobacco Use Types Packs/Day Years [...] on filedocumented in this encounter Care Teams Masonry Teacher Relationship Specialty Start Date End Date Nevin Keita MD [address] [place] [address] [email or web address] PCP - General Family Medicine 08/29/21 Ernesto Stewart DO [address] [place] [address] [email or web address] PCP - General Internal Medicine 12/14/23 documented as of this encounter Additional Source Comments The information contained in this document represents components of the legal health record. It is not the complete legal health record.[facility]
--- OUTSIDE RECORDS SUMMARY | 2025-09-27 18:53 | XMS_ITS | Encounter Summary ---
Author Organization [facility] Address [address] [place] [address] Phone Care Team Providers Care Repair Supervisor Name Role Phone [email or web address] Primary Care Provider [phone] Reason for Referral * Outpatient Procedure - Closed Specialty Diagnoses / Procedures Referred By Nick t Referred To Contact Radiology Diagnoses Edema, unspecified type Procedures US Lower Extremity Veins Duplex (Right) Laury Patten NP [address] [place] [address] Phone: tel: fax: [email or web address] Referral ID Status Reason Start Date Expiration Date Visits Re quested Visits Authorized [id number] Closed 02/17/2024 02/16/2025 1 1 Encounter Details Date Type Department Care Team (Latest Contact Info) Description 02/17/2024 Transcribe Orders Virtual Department [address] [place] [id number] Laury Patten NP [address] [place] [phone] [email or web address] Edema, unspecified type (Primary Dx) Social History [...] clinician's provided indication for this examination in [facility]:Outside Radiology Order; Edema; leg pain TECHNIQUE: [...] x 1.3 cm Huff cyst. Laury Patten VP LAB CV US VASCULAR Final Result documented in this encounter Visit Diagnoses Diagnosis Edema, unspecified type- Primary Edema, unspecified type documented in this encounter Care Teams Repair Supervisor Relationship Specialty Start Date End Date Ernesto Stewart DO PCP - General Internal Medicine 12/14/23 documented as of this encounter Additional Source Comments The information contained in this document represents components of the legal health record. It is not the complete legal health record.[facility]
--- OUTSIDE RECORDS SUMMARY | 2025-09-27 18:53 | XMS_ITS | Clinical Summary ---
Author Organization [facility] Address [address] [place] [address] Phone Care Team Providers Care Gusset Ripper Name Role Phone Ernesto Stewart DO Primary Care Provider [phone] Allergies No known active allergies Medications acetaminophen [...] 0 Refills, Maintenance, 07/27/24 11:29:00 AM EDT, [id number], Partial fill upon patient request if the [...] EST) SODIUM 135 133 - 146 mmol/L [facility] POTASSIUM 4.5 3.3 - 5.1 mmol/L [facility] CHLORIDE 99 96 - 108 mmol/L [facility] CO2 27 21 - 35 mmol/L [facility] BUN 15 6 - 19 mg/dL [facility] CREATININE 0.90 0.5 - 1.5 mg/dL [facility] GLUCOSE 151(H) 70 - 99 mg/dL [facility] ALBUMIN 4.0 3.9 - 4.8 g/dL [facility] TOTAL PROTEIN 7.3 6.5 - 8.0 g/dL [facility] CALCIUM 9.3 8.4 - 10.3 mg/dL [facility] ALKALINE PHOSPHATASE 88 39 - 117 U/L [facility] TOTAL BILIRUBIN 0.9 0.0 - 1.2 mg/dL [facility] AST 28 0 - 37 U/L [facility] ALT 24 0 - 40 U/L [facility] GLOBULIN 3.3 1 - 4.8 g/dL [facility] EGFR 90 >59 mL/min/1.7 3m2 [facility] Comment:Estimated glomerular filtration rate calculated using the CKD-EPI refit equation. ANION GAP 14 10 - 20 mmol/L [facility] Blood 09/30/2024 8:26 AM EST 09/30/2024 8:30 AM EST us Divya Leger Keaton OPERATOR/ASSISTANT FOREMAN LAB BLOOD BKR ORDERABLE S Final Result [facility] [address] [place] [address] from Last 3 Months or Most Recently Relevant to Health Maintenance Insurance MEDICARE HMO REPLACEMENT MEDICARE HMO REPLACEMENT MEDICARE HMO REPLACEMENT MEDICARE HMO REPLACEMENT MEDICARE HMO REPLACEMENT MEDICARE HMO REPLACEMENT MEDICARE HMO REPLACEMENT MEDICARE HMO REPLACEMENT [facility] MEDICARE HMO REPLACEMENT Advance Directives For more information, please contact: [phone] (9AM - 5PM Mary/[facility], Friday-Friday) * Full Code (Latest Code Status on File) Date Activated Date Inactivated Comments 08/24/2021 10:27 PM Question Answer Comments Code Status Confirmed With: Patient Care Teams Gusset Ripper Relationship Specialty Start Date End Date Ernesto Stewart DO PCP - General Internal Medicine 12/14/23 Additional Source Comments The information contained in this document represents components of the legal health record. It is not the complete legal health record.[facility]
--- OUTSIDE RECORDS SUMMARY | 2025-09-27 18:53 | XMS_ITS | Encounter Summary ---
Author Organization [facility] Address [address] [place] [address] Phone Care Team Providers Care Insurance Sales Agent Name Role Phone Nevin Keita MD Primary Care Provid er Ernesto Stewart DO Primary Care Provider [phone] Encounter Details Date Type Department Care Team (Late st Contact Info) Description 01/08/2022 Transcribe Orders [facility] [address] [place] [address] Nevin Keita MD [address] [id number] [email or web address] Social History Tobacco Use Types Packs/Day [...] on filedocumented in this encounter Care Teams Insurance Sales Agent Relationship Specialty Start Date End Date Nevin Keita MD [address] [place] [address] [email or web address] PCP - General Family Medicine 08/29/21 Ernesto Stewart DO [address] [place] [phone] PCP - General Internal Medicine 12/14/23 documented as of this encounter Additional Source Comments The information contained in this document represents components of the legal health record. It is not the complete legal health record.[facility]
--- OUTSIDE RECORDS SUMMARY | 2025-09-27 18:53 | XMS_ITS | Encounter Summary ---
Author Organization [facility] Address [address] [place] [address] Phone Care Team Providers Care Cane Weigher Helper Name Role Phone Pcp, Unknown Primary Care Provider Nevin Sotelo MD Primary Care Provid er Ernesto Stewart DO Primary Care Provider [phone] Encounter Details Date Type Department Care Team (Late st Contact Info) Description 08/24/2021 Procedure Pass [facility] [address] [place] [address] Social History Tobacco Use Types Packs/Day Years [...] documented as of this encounter Care Teams Cane Weigher Helper Relationship Specialty Start Date End Date Pcp, Unknown PCP - General 08/24/21 08/28/21 Nevin Keita MD [address] [place] [phone] [email or web address] PCP - General Family Medicine 08/29/21 Ernesto Stewart DO [address] [place] [phone] [email or web address] PCP - General Internal Medicine 12/14/23 documented as of this encounter Additional Source Comments The information contained in this document represents components of the legal health record. It is not the complete legal health record.[facility]
--- OUTSIDE RECORDS SUMMARY | 2025-09-27 18:53 | XMS_ITS | Encounter Summary ---
Author Organization [facility] Address [address] [place] [address] Phone Care Team Providers Care Biology Tutor Name Role Phone Pcp, Unknown Primary Care Provider Nevin Sotelo MD Primary Care Provid er Ernesto Stewart DO Primary Care Provider [phone] Encounter Details Date Type Department Care Team (Late st Contact Info) Description 08/25/2021 Procedure Pass [facility] Scan - [address] [address] Social History Tobacco Use Types Packs/Day Years [...] documented as of this encounter Care Teams Biology Tutor Relationship Specialty Start Date End Date Pcp, Unknown PCP - General 08/24/21 08/28/21 Nevin Keita MD [address] [place] [address] [email or web address] PCP - General Family Medicine 08/29/21 Ernesto Stewart DO [address] [place] [phone] [email or web address] PCP - General Internal Medicine 12/14/23 documented as of this encounter Additional Source Comments The information contained in this document represents components of the legal health record. It is not the complete legal health record.[facility]
== END 2025-09-27 16:17 | disposition home or self-care (01) ==
LOC: HO.HPSW 15:40
PROVIDERS: PCP Nurse Practitioner Family; Visit Provider Nurse Practitioner Family
DX: J45.40 Moderate persistent asthma, uncomplicated (principal); G47.33 Obstructive sleep apnea (adult) (pediatric); G47.34 Idiopathic sleep related nonobstructive alveolar hypoventilation
CPT/HCPCS: 99214

== ENCOUNTER → 2025-09-27 15:39 | Outpatient (BNVA) | payer MEDICARE, SELFPAY | PROVIDERS: PCP Nurse Practitioner Family; Visit Provider Nurse Practitioner Family | DX: J45.40 Moderate persistent asthma, uncomplicated (principal); G47.33 Obstructive sleep apnea (adult) (pediatric); G47.34 Idiopathic sleep related nonobstructive alveolar hypoventilation | CPT/HCPCS: 99212 ==